=== PATIENT | male | born 1945 | race Caucasian/White ===

== ENCOUNTER → 2017-01-30 | Outpatient (CLI) | payer MEDICARE ==
[~2017-01-30] MED LIST: ACCUNEB 0.1.25 MG/1 NEB; ADVAIR 250/501 EA INH; ADVAIR 500/501 EA INH; ALBUTEROL1.25 MG/3 NEB; AMPICILLIN250 MG PO; AMPICILLIN500 MG PO; BIAXIN500 MG PO; CEFTIN250 MG PO; CEFUROXIME250 MG PO; CLARITIN10 MG PO; COMBIVENT1 ARO IH; CONGESTI PO; COREG12.5 M1 PO; COREG6.25 MG PO; COUMADIN2 M1 PO; COUMADIN2 MG PO; COUMADIN3 M1 PO; COUMADIN4 M1 PO; Carafate1 GM/10 ML PO; Coumadin2 MG PO; DALI500T PO; DARVOCET N 1001 TAB PO; DELTASONE10 MG PO; DELTASONE20 MG PO; DOXYCYCLINE100 M3 PO; DOXYCYCLINE100 MG PO; FLONASE0.05 MG/AC NS; FLUCONAZOLE100 MG PO; HYDROCHLOROTH12.5 MG PO; JANTOVEN1 MG PO; KEFLEX500 MG PO; LISINOPRIL10 M1 PO; LISINOPRIL10 MG; LISINOPRIL20 MG PO; LISINOPRIL5 MG PO; MAXIPIME1 GM IV; MEDROL DOSEPAK4 MG PO; METAMUCIL0.4 GM PO; METFORMIN500 MG PO; MUCINEX DM 30/61 TAB PO; Metformin Hydr500 MG PO; NASONEX0.05 MG/AC NAS; NEXIUM40 MG PO; OMNICEF300 MG PO; PREDNISONE10 MG PO; SIMVASTATIN20 MG PO; SINGULAIR10 MG PO; SMZ TMP DS PO; SPIRIVA -- 3018 MCG INH; THEOPHYLLINE300 M2 PO; TRAZADONE HYDR100 MG PO; TRAZODONE50 MG PO; TUSSI-ORGANID3840 ML PO; ULTRAM50 MG PO; VENTOLIN 02.5 MG/3 M INH; WARFARIN2 MG PO; WARFARIN4 MG; XARE20MG PO; ZITHROMAX250 MG PO; ZYVOX600 MG PO
== END | disposition home or self-care (01) ==
LOC: CT 09:42
DX: R91.1 Solitary pulmonary nodule (principal); R91.8 Other nonspecific abnormal finding of lung field; R05 Cough; R06.02 Shortness of breath; J43.9 Emphysema, unspecified; J44.9 Chronic obstructive pulmonary disease, unspecified; Z85.46 Personal history of malignant neoplasm of prostate; Z85.51 Personal history of malignant neoplasm of bladder

== ENCOUNTER 2017-09-22 14:44 | Inpatient (IN) | payer MEDICARE ==
[~2017-09-22] VITALS: Ht 170.1 cm; Wt 76.3 kg
--- NOTE | ~2017-09-22 | CON ---
[place], [place] REPORT OF CONSULTATION NAME: JUNIOR Chanel [id number] UN[facility] #: [id number] ROOM: 526 DOCTOR: CARLOS PRO MD BIRTHDATE: [birth year] DOS: 09/24/2017 CONSULTATION REQUESTED BY: Hospitalist service. REASON FOR CONSULTATION: Assessment of the ongoing respiratory symptoms, possibility of Mycobacterium avium complex infection. HISTORY OF PRESENT ILLNESS: This is a 72-year-old white male patient who has been known to me from the past. The patient has been hospitalized in December 2016 and treated for acute exacerbation of chronic obstructive pulmonary disease and acute bronchitis. The patient underwent bronchoscopy at that time, which was therapeutic bronchoscopy, negative cultures for the Mycobacterium organism. The patient presented to the hospital and currently admitted to the hospital as the patient has been noted with symptoms of having increased coughing with sputum expectoration at times. The shortness of breath of the patient has been noted worsening with increased coughing, which was noted with some sputum expectoration at times, yellowish in color. There were no symptoms of hemoptysis reported. The patient denies symptoms of chest pain. He denies any symptoms of abnormal weight loss. REVIEW OF SYSTEMS: CONSTITUTIONAL SYMPTOMS: He does complain of fatigue. Denies any symptoms of abnormal weight loss. Denies any changes in appetite. EYES: Denies any burning, redness, or tenderness. EARS, NOSE, AND THROAT: Denies sore throat, hoarseness, otalgia, postnasal drainage, or epistaxis. CARDIOVASCULAR: Denies anginal pain, edema or pain of the lower extremity. GASTROINTESTINAL: No dysphagia, nausea, vomiting, diarrhea, abdominal pain, hematemesis, melena, or hematochezia. SKIN: Denies any abnormal lesions or rashes. CENTRAL NERVOUS SYSTEM: Denies dizziness, headache, diplopia, or syncopal episodes. GENITOURINARY: The patient does have diversion ileostomy. There was no flank pain or hematuria reported. Remaining systems were reviewed with the patient, they were noted all negative. PAST MEDICAL HISTORY: 1. Uncomplicated severe persistent bronchial asthma. 2. Centrilobular emphysema. 3. Gastroesophageal reflux. 4. Bladder cancer. The patient had cystectomy and diversion ileostomy. 5. Prostate cancer managed surgically as well. 6. Mild obesity. 7. 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 8. Pulmonary embolus in 2008. 9. Chronic pleural thickening on the right side with some area of pulmonary fibrosis. 10. History of Pseudomonas aeruginosa pneumonia and bronchitis in the past. [place], [place] REPORT OF CONSULTATION NAME: JUNIOR Chanel LEMUS UNIT #: [id number] ROOM: 526 DOCTOR: YUNIER PAYTON MD,CARLOS BIRTHDATE: [birth year] PAST SURGICAL HISTORY: 1. Cystoscopy with cystectomy and diversion ileostomy. 2. Bladder cancer surgery with prostatectomy. 3. Amputation of little finger. 4. Past therapeutic bronchoscopy, 3 of them done in the past, last was done in December of 2016. SOCIAL HISTORY: The patient is and lives at home. He has been noted with history of tobacco use from age of [age] years old, a pack of cigarettes per day until year 1999. There was no history of alcohol use or illicit drug use or occupation related pulmonary exposure. FAMILY HISTORY: Father at age of 89 years of unknown cancer. Mother at age of 80 years with no medical illnesses. MEDICATIONS: Current administered medication in this patient, which were noted as use of Daliresp, Protonix, Coreg, Mucinex, trazodone, DuoNeb, azithromycin, Rocephin, temazepam, and other p.r.n. medications. ALLERGIES: NOTED ALLERGY TO FLUOROQUINOLONE. PHYSICAL EXAMINATION: GENERAL: A 72-year-old male who has been currently noted awake and alert, without any distress. Height of 5 feet 7 inches, weight 168 pounds, BMI 26.2. VITAL SIGNS: Temperature 99.2 degree Fahrenheit, normal temperature recorded since admission, respiratory rate ranged between 39 and 20 this morning. Heart rate ranges between 100 and 58. Blood pressure 147/580-129/66. Pulse oxygen saturation of the patient noted on 3 liters nasal cannula 98% saturation of oxygen. HEENT: Mild senile hearing loss. Head was atraumatic. NECK: Supple. CARDIOVASCULAR SYSTEM: S1, S2 audible. LUNGS: The patient was noted without any wheeze or crackles at the present time. Breaths are noted mild to moderately decreased bilaterally. ABDOMEN: Soft, nontender. EXTREMITIES: Without any edema, clubbing, or cyanosis. CENTRAL NERVOUS SYSTEM: Without any gross focal deficit. SKIN: No visible lesions or rashes. MUSCULOSKELETAL: Without any acute deformities. LABORATORY DATA: The patient's CBC on 09/22/2017 for this patient on admission, WBC count 20.2, hemoglobin 13.7, hematocrit 43.2, and platelet count was normal. The differential for the patient was noted as 88% segmented neutrophils with ____ differential. Lactic acid 3.1, subsequent 2.0 on 09/22/2017 on admission. BMP, BUN 25, creatinine 2.10, glucose 128, and sodium 135. The troponin for the patient, which were done on 09/22/2017, 3 sets were all noted normal. CMP on 09/24/2017, BUN 42, creatinine 1.61, glucose 128. The culture of the sputum, preliminary showing normal yfn from 09/23/2017. Gram stain of 09/23/2017, [place], [place] REPORT OF CONSULTATION NAME: JUNIOR Chanel LEMUS UNIT #: [id number] ROOM: 526 [facility] [birth year] many white blood cells, rare epithelial cells, moderate gram-positive cocci in pairs. Blood cultures from 09/22/2017 showed no bacterial growth. Chest x-ray one-view of the patient that was done for this patient on admission was noted with changes of COPD with scattered interstitial infiltration for this patient, which appeared to be increased. CT scans of the chest on the patient were reviewed. The first CT scan of the chest was reviewed from 2010 shows chronic fibrotic changes noted scattered in the lung with pleural thickening. CT scan of the chest on the patient that was done on 01/30/2017, was reviewed, shows area of chronic fibrotic changes noted predominantly in the right lower lobe with a chronic pleural thickening. Scattered tree-in-bud appearance was noted. The CT scan of the chest on this patient was completed that was ordered by the primary care attending on 09/22/2017 was also personally reviewed. Patchy area of infiltration was noted that appeared to be more pronounced as compared with the previous CT scan of the chest. Evidence of centrilobular emphysema changes noted in the lungs bilaterally remains unchanged. Chronic pleural thickening in the right side was especially noted, which has been known for past many years without any changes. IMPRESSION: 1. The patient has been currently admitted to the hospital with increased respiratory symptoms noted with acute exacerbation of chronic obstructive pulmonary disease and bronchial asthma superimposed on current acute bronchitis versus chronic infection to be considered as well. In the past, three bronchoscopies done on several occasions on this patient including the one done this year, does not show any isolation of Mycobacterium avium complex or other mycobacterial infection in this patient suggestive of acute infection at that time. Possibility of a new infection superimposed cannot be completely excluded as well. 2. History of past tobacco use in this patient. 3. Chronic pleural thickening, remains unchanged, nonmalignant. 4. Past history of cancer of the urinary bladder as well as the prostate in the patient, which has been treated adequately without any known recurrence. 5. Past history of pulmonary embolism, treated with anticoagulation. PLAN OF MANAGEMENT: The patient was planned for another bronchoscopy that will be done tomorrow morning for more accurate culture assessment to rule out Mycobacterium avium complex infection. In the meantime, usual antibiotic as previously. Continuation of the Solu-Medrol treatment as well. All other supportive therapy, plan of management and care as ongoing. The consent for the procedure has been obtained from the patient. Planned to be done in the morning. N.p.o. past midnight status will be achieved. The patient has not been noted on any anticoagulation at this time since it had been discontinued after several years of use by the primary care physician. [place], [place] REPORT OF CONSULTATION NAME: JUNIOR Chanel LEMUS UNIT #: [id number] ROOM: 526 DOCTOR: CARLOS PRO MD BIRTHDATE: [birth year] CARLOS FAYE MD CM:CONSTR:REPORT OF CONSULTATION 1251 09/25/17 0256 interface
--- NOTE | ~2017-09-22 | EKG ---
[place], [place] ELECTROCARDIOGRAM REPORT NAME: JUNIOR Chanel LEMUS UNIT #: [id number] ROOM: 526 DOCTOR: YUNIER PAYTON MD,CARLOS BIRTHDATE: [birth year] DOS: 09/24/2017 The electrocardiogram was done on 09/24/2017 at 10:12 a.m. The patient noted with normal sinus rhythm with heart rate of 67 beats per minute. CARLOS FAYE MD CM:EKGRPT:ELECTROCARDIOGRAM REPORT [id number] CARLOS PAYTON MD
--- NOTE | ~2017-09-22 | PR ---
[place], [place] PROGRESS NOTE NAME: JUNIOR Chanel LEMUS UNIT #: [id number] ROOM: 526 DOCTOR: YUNIER PAYTON MD,CARLOS BIRTHDATE: [birth year] DOS: 09/26/2017 SUBJECTIVE: He has been noted comfortable. Bronchoscopy done yesterday. Reduction in symptoms of cough was noted. Shortness breath and wheezing was also noted decreased. OBJECTIVE: VITAL SIGNS: Recorded and showed normal temperature, respiratory rate 20, heart rate 67, and blood pressure 115/56. Pulse oxygen saturation on 3 liters 96% saturation recorded. HEENT: No acute change. NECK: Supple. CARDIOVASCULAR: S1, S2 audible. LUNGS: Without any crackles. Mild scattered expiratory wheezing. ABDOMEN: Soft and nontender. LABORATORY DATA: BUN 42 today. Creatinine 1.56. CBC: WBC count 12,000, mild anemia with normal platelet count. IMPRESSION: 1. The patient with acute tracheobronchitis, bilateral patchy infiltration, chronic versus acute infection or inflammatory fibrosis remains in consideration. 2. Resolving acute exacerbation of obstructive lung disease. The preliminary culture of the bronchial washing was noted normal yfn, final culture results were pending. PLAN OF TREATMENT: No changes in the plan of therapy at the present time. The patient could be considered for discharge to home with further followup as an outpatient. Other supportive plan of management and care. CARLOS FAYE MD CM:PNTRANS 0813 [id number] CARLOS PAYTON MD 09/26/17 1248 interface
--- NOTE | ~2017-09-22 | PROC NOTE ---
[place], [place] PROCEDURE NOTE NAME: JUNIOR Chanel LEMUS UNIT #: [id number] ROOM: 526 DOCTOR: YUNIER PAYTON MD,CARLOS BIRTHDATE: [birth year] DOS: 09/25/2017 PROCEDURE: Bronchoscopy. PREOPERATIVE DIAGNOSIS: The patient with bilateral tree-in-bud opacities in the lungs with ongoing coughing. POSTOPERATIVE DIAGNOSES: The patient with bilateral tree-in-bud opacities in the lungs with ongoing coughing. PROCEDURE DESCRIPTION: Informed consent obtained for the patient. The patient was brought to the OR and placed in supine position. Conscious sedation administered by the Anesthesia Department. After achieving proper sedation, airway introduced into the mouth. Bronchoscope advanced to the airway into laryngeal area. Epiglottis and vocal cords were seen. Vocal cords were noted with yellowish in color moving symmetrically with movements. Bronchoscope advanced to the vocal cords into the trachea. The trachea was noted with moderate amount of thick mucus secretion with some purulent secretion, which was suctioned out with the help of normal saline wash, sent for culture. A moderate amount of impaction of the mucus plugs noted endobronchial tree bilaterally, which was suctioned out with the help of normal saline wash without any difficulty. Postoperative findings were discussed with the patient's spouse in detail. Based on the current assessment, the dose of the corticosteroids will be decreased to 40 mg Solu-Medrol b.i.d. from 60 mg b.i.d. CARLOS FAYE MD CM:PROCNOTE:PROCEDURE NOTE 0950 1204 CARLOS PAYTON MD
--- NOTE | ~2017-09-22 | PROC NOTE ---
[place], [place] PROCEDURE NOTE NAME: JUNIOR Chanel LEMUS UNIT #: [id number] ROOM: 526 DOCTOR: MANJU BRADEN BIRTHDATE: [birth year] DOS: 09/24/2017 MODIFIED BARIUM SWALLOW LOCATION: [facility], room 526, bed 1.. ORDERING PHYSICIAN: Dr. Nunez. RADIOLOGIST: Dr. Martinez. BACKGROUND INFORMATION: The patient is a 72-year-old male who was seen for modified barium swallow. This test was ordered to rule out aspiration. Medical history is significant for pneumonia, severe sepsis, ARS, HTN, urostomy, bladder cancer, COPD, DM and prostate cancer. The patient currently receives a regular diet and thin liquids. For today's assessment, he was alert and able to follow commands. The patient was receiving oxygen via nasal cannula. Congested respirations were noted. The patient was also noted to cough frequently prior to feeding. Oral peripheral examination revealed edentulous status. Lingual, labial and buccal skills were within normal limits in terms of strength, range of motion and coordination. The patient was able to volitionally cough and swallow. METHODS AND MATERIALS USED FOR THE EXAM: The patient was positioned in the lateral plane and examination was viewed under fluoroscopy. The patient was challenged with a variety of consistencies to assess swallowing skills including applesauce mixed with barium presented in half teaspoon amounts, barium coated cookie and sandwich given in bite size pieces and thin liquid barium taken by cup and straw. The patient was given the cup and instructed to swallow independently. He was noted to consume and swallow the liquids quickly. ORAL PHASE: Unremarkable. PHARYNGEAL PHASE: The pharyngeal swallow occurred within a timely manner. Transient penetration occurred during the swallow with thin liquids when taken by cup and straw. This is suspected to be due to his rapid swallowing and rapid consumption time. No aspiration occurred with any consistency. There was no residue in the pharyngeal recesses. ESOPHAGEAL PHASE: This phase of the swallow was not formally assessed during this examination. IMPRESSIONS AND RECOMMENDATIONS: Based upon assessment results, this 72-year-old patient presents with swallowing skills that are grossly within functional limits. Transient penetration occurred without aspiration with thin liquids. Recommend the patient receive a regular diet and thin liquids. Recommend small slow sips of thin liquid by cup. Short term followup is recommended focusing on education and adherence to safe swallow precautions. Results and recommendations were shared with the patient and his nurse and they verbalized understanding. [place], [place] PROCEDURE NOTE NAME: JUNIOR Chanel LEMUS UNIT #: [id number] ROOM: 526 DOCTOR: MANJU BRADEN BIRTHDATE: [birth year] Thank you very much for this referral. Should you have any questions regarding this patient, please contact the speech pathologist at [phone]. MANJU BRADEN CM:PROCNOTE:PROCEDURE NOTE 1500 [id number] MANJU BRADEN
--- NOTE | ~2017-09-22 | PR ---
[place], [place] PROGRESS NOTE NAME: JUNIOR Chanel LEMUS UNIT #: [id number] ROOM: 526 DOCTOR: CARLOS PRO MD BIRTHDATE: [birth year] DOS: 09/25/2017 SUBJECTIVE: He has been noticed still significant cough. The patient with some sputum expectoration at time. He is n.p.o. past midnight for bronchoscopy today. The patient has been noted symptoms shortness, wheezing intermittently as well. Continue corticosteroids and other medical management was continued as previously ordered. OBJECTIVE: VITAL SIGNS: Normal temperature, respiratory rate 20, heart rate 63, blood pressure 150/59. Pulse oxygen saturation 96% saturation. HEENT: Examination shows no acute change. NECK: Supple. CARDIOVASCULAR: S1, S2 audible. LUNGS: The patient was noted without any crackles. Expiratory wheezing was present bilaterally. ABDOMEN: Soft, nontender. EXTREMITIES: Without any acute edema. LABORATORY DATA: WBC count 15,000, hemoglobin 11, hematocrit 35.0, platelet count of 219,000. The BMP this morning, BUN 46, creatinine 1.63, glucose 119, chloride of 109. Culture of the sputum, normal yfn. IMPRESSION: 1. The patient who has been currently noted with ongoing acute exacerbation of chronic obstructive pulmonary disease and bronchial asthma, acute tracheobronchitis. 2. The patient with a history of cancer of the bladder and the prostate with diversion ileostomy. 3. Rule out mycobacterium avium complex infection as well. 4. Leukocytosis secondary to corticosteroids and underlying infection. Modified barium swallow that was done yesterday was noted essentially without any acute abnormalities. PLAN OF TREATMENT: Proceed with bronchoscopy as planned for today. Any addition or modification treatment changes if necessary will be done after bronchoscopy. Otherwise, continue the patient corticosteroids, bronchodilators, antibiotics and other therapies. Usual care. [place], [place] PROGRESS NOTE NAME: JUNIOR Chanel LEMUS UNIT #: [id number] ROOM: 526 DOCTOR: CARLOS PRO MD BIRTHDATE: [birth year] CARLOS FAYE MD CM:PNTRANS 0949 1205 CARLOS PAYTON MD 09/25/17 1206 interface
[2017-09-22 14:55] VITALS: BP 153/79
[2017-09-22 15:39] LABS: BASO % 0.2 % (0.0-1.0); HEMATOCRIT 43.3 % (42.0-52.0); HEMOGLOBIN 13.7 g/dl (14.0-18.0); LYMPH # 1.2 10*3/uL (1.3-4.4); LYMPH % 5.9 % (27.0-41.0); MEAN CELL VOLUME 88.2 fl (80.0-94.0); MEAN CORPUSCULAR HGB 27.9 pg (27.0-31.0); MEAN CORPUSCULAR HGB CONC 31.6 g/dl (33.0-37.0); MEAN PLATELET VOLUME 9.3 fl (9.6-12.3); MONO # 1.1 10*3/uL (0.1-1.0); MONO % 5.3 % (3.0-9.0); NEUT # 17.8 10*3/uL (2.3-7.9); NEUT % 88.1 % (47.0-73.0); PLATELET COUNT AUTOMATED 280 10*3/uL (130-400); RED BLOOD COUNT 4.91 10*6/uL (4.50-5.90); RED CELL DISTRI WIDTH 13.1 % (0-14.5); WHITE BLOOD COUNT 20.2 10*3/uL (4.8-10.8)
[2017-09-22 15:56] LABS: ACT PARTIAL THROMBO TIME 31.5 SECONDS (20.8-31.5); INTERNATIONAL NORM RATIO 1.1 (2.0-3.5)
[2017-09-22 16:00] LABS: ALBUMIN 3.3 gm/dl (3.1-4.5); ALKALINE PHOSPHATASE 115 U/L (45-117); BUN 25 mg/dl (7-24); CHLORIDE 99 mmol/L (98-107); LIPASE 69 U/L (73-393); POTASSIUM 4.6 mmol/L (3.5-5.1); SGOT/AST 12 IU/L (3-35); SGPT/ALT 12 U/L (12-78); SODIUM 135 mmol/L (136-145); TOTAL PROTEIN 8.6 gm/dL (6.4-8.2)
[2017-09-22 16:17] LABS: TROPONIN I < 0.015 ng/ml (<0.045)
[2017-09-22 16:20] VITALS: BP 117/73
[2017-09-22 17:04] VITALS: BP 139/67
--- NOTE | 2017-09-22 17:09 | NUR ---
REPORT GIVEN TO OTILIA GERARDO AT THIS TIME.
[2017-09-22 17:40] VITALS: BP 115/67
--- NOTE | 2017-09-22 17:40 | NUR ---
A 72, admitted to , under the services of MATTEO Malone DO with a diagnosis of PNEUMONIA, ARF, AND SEVERE SEPSIS. Chief complaint is SHORTNESS OF BREATH. Patient arrived via ambulatory from ER. Monitor applied. Initial assessment completed. Vital signs taken and recorded. MATTEO MALONE DO notified of admission to the unit. Orders received. See assessment for past medical history, medications and allergies. Patient and/or family oriented to unit. [facility] visitation policy reviewed. Clothing/patient valuable form completed. OTILIA FIORE
[2017-09-22 17:43] VITALS: BP 115/67
--- NOTE | 2017-09-22 17:56 | NUR ---
MEDS VERIFIED WITH [facility]. PATIENT'S STATES THAT DR FAYE IS GIVING THEM SAMPLES OF THE ADVAIR AND THE PATIENT WAS GETTING SAMPLES OF COREG FROM PCP BUT IS CURRENTLY OUT.
--- NOTE | 2017-09-22 19:49 | NUR ---
IN TO SEE PT, PT ALERT ORIENTED AND PLEASANT. SUPPLEMENTAL OXYGEN IN PLACE. RESPIRATIONS EASY. OFF THE FLOOR TO CAT SCAN AT THIS TIME.
[2017-09-22 21:08] VITALS: BP 121/56
[2017-09-23] VITALS: BP 104/41
[2017-09-23 06:17] LABS: MEAN CELL VOLUME 88.2 fl (80.0-94.0); MEAN CORPUSCULAR HGB 28.1 pg (27.0-31.0); MEAN CORPUSCULAR HGB CONC 31.9 g/dl (33.0-37.0); MEAN PLATELET VOLUME 9.7 fl (9.6-12.3); PLATELET COUNT AUTOMATED 234 10*3/uL (130-400); RED BLOOD COUNT 3.91 10*6/uL (4.50-5.90); WHITE BLOOD COUNT 12.8 10*3/uL (4.8-10.8)
[2017-09-23 06:21] LABS: HEMATOCRIT 34.5 % (42.0-52.0)
[2017-09-23 06:42] LABS: ALBUMIN 2.5 gm/dl (3.1-4.5); CREATININE 1.66 mg/dL (0.70-1.30); PHOSPHOROUS 2.3 mg/dL (2.5-4.9); POTASSIUM 4.6 mmol/L (3.5-5.1); TOTAL PROTEIN 6.7 gm/dL (6.4-8.2)
[2017-09-23 06:49] LABS: FREE T4 1.19 ng/dl (0.76-1.46); THYROID STIM HORMONE (HS) 0.248 uIU/ml (0.358-4.75)
[2017-09-23 07:06] LABS: PLATELET SUFFICIENCY NORMAL (NORMAL); TOTAL CELLS COUNTED 100 #CELLS; TOXIC GRANULATION SLIGHT
[2017-09-23 07:21] LABS: VITAMIN D, 25-HYDROXY 19.2 ng/mL (30-100)
--- NOTE | 2017-09-23 07:51 | NUR ---
Shift chart check completed.
[2017-09-23 08:00] VITALS: BP 124/68
--- NOTE | 2017-09-23 11:39 | NUR ---
NOTIFIED DR FAYE OF CONSULT
[2017-09-23 12:00] VITALS: BP 129/66
[2017-09-23 20:00] VITALS: BP 134/64
[2017-09-24] VITALS: BP 141/58
--- NOTE | 2017-09-24 01:28 | NUR ---
PT RESTING IN BED NO ACUTE DISTRESS NOTED AT THIS TIME. CALL LIGHT IN REACH.
--- NOTE | 2017-09-24 05:00 | NUR ---
PT RESTING IN BED WITH EYES CLOSED. NO S AND S OF ACUTE DISTRESS NOTED AT THIS TIME. RESPS EASY AND REGULAR. CALL LIGHT IN REACH.
[2017-09-24 06:48] LABS: HEMATOCRIT 33.8 % (42.0-52.0); HEMOGLOBIN 10.8 g/dl (14.0-18.0); MEAN CELL VOLUME 87.6 fl (80.0-94.0); MEAN PLATELET VOLUME 9.6 fl (9.6-12.3); PLATELET COUNT AUTOMATED 273 10*3/uL (130-400); RED BLOOD COUNT 3.86 10*6/uL (4.50-5.90); WHITE BLOOD COUNT 17.7 10*3/uL (4.8-10.8)
[2017-09-24 07:02] LABS: ALBUMIN 2.6 gm/dl (3.1-4.5); CREATININE 1.61 mg/dL (0.70-1.30); POTASSIUM 4.5 mmol/L (3.5-5.1); TOTAL PROTEIN 6.7 gm/dL (6.4-8.2)
[2017-09-24 07:24] LABS: BURR CELLS MODERATE; PLATELET SUFFICIENCY NORMAL (NORMAL); TOTAL CELLS COUNTED 100 #CELLS
--- NOTE | 2017-09-24 07:30 | NUR ---
ASSUMED CARE OF PT AT THIS TIME RESPS EASY AND NONLABORED WITH NO S/S OF DISTRESS CALL LIGHT WITH IN REACH
[2017-09-24 08:00] VITALS: BP 100/58
--- NOTE | 2017-09-24 09:23 | NUR ---
Recycler in to talk to patient. Patient states lives at home with . There are few steps in the home. Physician: ana maría Pharmacy: [facility] [place] [facility] services: none Patient's level of ADLs: INDEPENDENT Patient has working utilities: all working DME: nebulizer, home oxygen, portable tanks from [employer] Follow-up physician's appointment after d/c: will be made by hospitalist nurse director upon discharge Does patient want to access PORTAL?: no Discharge plan discussed with patient, patient lives at home alone, is independent in adls and ambulation, patient states he will be going back home when able, discussed with him VNA and he refused any services at this time. ANTHONY OWENS
[2017-09-24 12:00] VITALS: BP 147/58
--- NOTE | 2017-09-24 14:30 | NUR ---
SPEECH PATHOLOGY MBS completed as per orders. Patient was challenged with puree, soft solids and thin liquids taken by cup and straw. Oral skills were WNL with all consistencies given. Transient penetration occurred with thin liquid by cup and by straw. No aspiration occurred with any consistency. He was noted to drink rapidly. Recommend patient remain on regular diet and thin liquids. Recommend patient consume liquids in small amounts and drinking slowly to improve safety. Short term follow up is recommended focusing on education to ensure implementation of safe swallow strategies. Results and tex. were shared with patient and his nurse and they verbalized understanding. Dictated report to follow. Thank you for this referral. MANJU BRADEN MSCCC-DIRECTOR OF LABOR AND DELIVERY
[2017-09-24 16:00] VITALS: BP 135/60
[2017-09-24 20:00] VITALS: BP 132/62
[2017-09-25] VITALS (7 sets, daily range): BP systolic 115–153; BP diastolic 56–78
--- NOTE | 2017-09-25 03:05 | NUR ---
24 HR chart check completed.
[2017-09-25 06:37] LABS: MEAN CELL VOLUME 88.2 fl (80.0-94.0); MEAN CORPUSCULAR HGB 27.7 pg (27.0-31.0); MEAN CORPUSCULAR HGB CONC 31.4 g/dl (33.0-37.0); MEAN PLATELET VOLUME 9.9 fl (9.6-12.3); PLATELET COUNT AUTOMATED 293 10*3/uL (130-400); RED BLOOD COUNT 3.97 10*6/uL (4.50-5.90); RED CELL DISTRI WIDTH 13.1 % (0-14.5)
[2017-09-25 07:10] LABS: CREATININE 1.63 mg/dL (0.70-1.30)
--- NOTE | 2017-09-25 07:18 | NUR ---
PT OFF FLOOR FOR BRONCHOSCOPY
[2017-09-25 07:57] LABS: BURR CELLS FEW; OVALOCYTES FEW; PLATELET SUFFICIENCY NORMAL (NORMAL); TOTAL CELLS COUNTED 200 #CELLS
--- NOTE | 2017-09-25 09:00 | NUR ---
case management attempted to visit with patient, patient out of room for procedure
--- NOTE | 2017-09-25 12:12 | NUR ---
SPEECH PATHOLOGY Patient was seen for f/u session this pm. Patient was visiting with spouse and was cooperative for tasks. He was able to recall recommendations provided after yesterday's MBS regarding slow intake with liquids and small sips. Patient's spouse was educated on results and tex. from the instrumental study and verbalized understanding. He had recently returned from a bronchoscopy and had a liquid tray present, which he had consumed all of. He reported that he adhered to the recommendations and had no coughing or choking episodes. Spouse confirmed the information he provided. As patient is implementing safe swallow strategies and tolerating liquids, recommend discharge from speech pathology services at this time. Thank you for this referral. MANJU BRADEN MSCCC-CUSHION BUILDER
--- NOTE | 2017-09-25 16:06 | NUR ---
PT REQUESTED AND ADMINISTERED MOM PRN, WILL MONITOR EFFECTS, CALL LIGHT WITH IN REACH
[2017-09-25 17:10] LABS: ACID FAST SMEAR Negative (.); ACID FAST SPEC PROCESSING Concentration (.)
[2017-09-26] VITALS: BP 115/56
--- NOTE | 2017-09-26 04:44 | NUR ---
24 HR chart check completed.
--- NOTE | 2017-09-26 05:25 | NUR ---
PT VOICES NO C/O AT THIS TIME.
[2017-09-26 06:47] LABS: BASO % 0.1 % (0.0-1.0); HEMATOCRIT 36.1 % (42.0-52.0); HEMOGLOBIN 11.3 g/dl (14.0-18.0); LYMPH # 1.6 10*3/uL (1.3-4.4); LYMPH % 13.3 % (27.0-41.0); MEAN CELL VOLUME 90.9 fl (80.0-94.0); MEAN CORPUSCULAR HGB 28.5 pg (27.0-31.0); MEAN CORPUSCULAR HGB CONC 31.3 g/dl (33.0-37.0); MEAN PLATELET VOLUME 9.5 fl (9.6-12.3); MONO # 0.7 10*3/uL (0.1-1.0); MONO % 5.8 % (3.0-9.0); NEUT # 9.6 10*3/uL (2.3-7.9); PLATELET COUNT AUTOMATED 272 10*3/uL (130-400); RED BLOOD COUNT 3.97 10*6/uL (4.50-5.90); RED CELL DISTRI WIDTH 13.1 % (0-14.5)
[2017-09-26 07:32] LABS: POTASSIUM 4.6 mmol/L (3.5-5.1)
[2017-09-26 07:39] LABS: CREATININE 1.56 mg/dL (0.70-1.30)
[2017-09-26 08:00] VITALS: BP 154/61
--- NOTE | 2017-09-26 09:30 | NUR ---
case management visits with patient, discussed with him VNA. patient refused any services at this time
[2017-09-26] MEDS ORDERED: SUPRAX400 M2 PO (12:28)
[2017-09-26] MEDS ORDERED: AVPAK AZITHROM250 MG PO (12:28)
[2017-09-26] MEDS ORDERED: PREDNISONE50 MG PO (12:28)
--- NOTE | 2017-09-26 14:54 | NUR ---
Discharge instructions reviewed with patient/family. Patient receptive and verbalizes understanding. Follow-up care arranged. Written instructions given to patient/family. YEN SALAS
[2017-09-26 16:13] LABS: ACID FAST SMEAR Negative (.); ACID FAST SPEC PROCESSING Concentration (.)
== END 2017-09-26 14:51 | disposition home or self-care (01) | DRG 871 ==
LOC: ED 14:44 → 5E 16:50 → EDHOLD 16:50 → 5E 16:57
PROVIDERS: Emergency Medicine; Family Medicine; Internal Medicine; Student in an Organized Health Care Education/Training Program; ADMIT Internal Medicine
PROC: BD11YZZ Fluoroscopy of Esophagus using Other Contrast (ICD-10-PCS; principal; 2017-09-24)
PROC: 0BC28ZZ Extirpation of Matter from Carina, Via Natural or Artificial Opening Endoscopic (ICD-10-PCS; 2017-09-25)
PROC: 0BC48ZZ Extirpation of Matter from Right Upper Lobe Bronchus, Via Natural or Artificial Opening Endoscopic (ICD-10-PCS; 2017-09-25)
PROC: 0BC88ZZ Extirpation of Matter from Left Upper Lobe Bronchus, Via Natural or Artificial Opening Endoscopic (ICD-10-PCS; 2017-09-25)
PROC: 0BC18ZZ Extirpation of Matter from Trachea, Via Natural or Artificial Opening Endoscopic (ICD-10-PCS; 2017-09-25)
PROC: 0BC58ZZ Extirpation of Matter from Right Middle Lobe Bronchus, Via Natural or Artificial Opening Endoscopic (ICD-10-PCS; 2017-09-25)
PROC: 0BC38ZZ Extirpation of Matter from Right Main Bronchus, Via Natural or Artificial Opening Endoscopic (ICD-10-PCS; 2017-09-25)
PROC: 0BC78ZZ Extirpation of Matter from Left Main Bronchus, Via Natural or Artificial Opening Endoscopic (ICD-10-PCS; 2017-09-25)
PROC: 0BC68ZZ Extirpation of Matter from Right Lower Lobe Bronchus, Via Natural or Artificial Opening Endoscopic (ICD-10-PCS; 2017-09-25)
PROC: 0BCB8ZZ Extirpation of Matter from Left Lower Lobe Bronchus, Via Natural or Artificial Opening Endoscopic (ICD-10-PCS; 2017-09-25)
PROC: 0BC98ZZ Extirpation of Matter from Lingula Bronchus, Via Natural or Artificial Opening Endoscopic (ICD-10-PCS; 2017-09-25)
DX: A41.9 Sepsis, unspecified organism (principal); J18.9 Pneumonia, unspecified organism; N17.0 Acute kidney failure with tubular necrosis; J96.20 Acute and chronic respiratory failure, unspecified whether with hypoxia or hypercapnia; I13.0 Hypertensive heart and chronic kidney disease with heart failure and stage 1 through stage 4 chronic kidney disease, or unspecified chronic kidney disease; E87.2 Acidosis; I50.32 Chronic diastolic (congestive) heart failure; J84.10 Pulmonary fibrosis, unspecified; J44.1 Chronic obstructive pulmonary disease with (acute) exacerbation; J44.0 Chronic obstructive pulmonary disease with (acute) lower respiratory infection; E87.1 Hypo-osmolality and hyponatremia; D63.1 Anemia in chronic kidney disease; N18.3 Chronic kidney disease, stage 3 (moderate); R65.20 Severe sepsis without septic shock; I25.10 Atherosclerotic heart disease of native coronary artery without angina pectoris; F32.9 Major depressive disorder, single episode, unspecified; K21.9 Gastro-esophageal reflux disease without esophagitis; E78.00 Pure hypercholesterolemia, unspecified; I25.5 Ischemic cardiomyopathy; X58.XXXA Exposure to other specified factors, initial encounter; R79.82 Elevated C-reactive protein (CRP); R79.89 Other specified abnormal findings of blood chemistry; J45.50 Severe persistent asthma, uncomplicated; J20.9 Acute bronchitis, unspecified; T38.0X5A Adverse effect of glucocorticoids and synthetic analogues, initial encounter; E55.9 Vitamin D deficiency, unspecified; E66.9 Obesity, unspecified; Z87.891 Personal history of nicotine dependence; Z79.01 Long term (current) use of anticoagulants; Z68.26 Body mass index [BMI] 26.0-26.9, adult; Z99.81 Dependence on supplemental oxygen; Z85.51 Personal history of malignant neoplasm of bladder; Z86.711 Personal history of pulmonary embolism; Z85.46 Personal history of malignant neoplasm of prostate; Z89.022 Acquired absence of left finger(s); Z93.2 Ileostomy status; Z90.6 Acquired absence of other parts of urinary tract; Z82.49 Family history of ischemic heart disease and other diseases of the circulatory system; Z80.9 Family history of malignant neoplasm, unspecified; Z88.1 Allergy status to other antibiotic agents; Z79.899 Other long term (current) drug therapy; Z88.8 Allergy status to other drugs, medicaments and biological substances

== ENCOUNTER 2017-10-16 13:46 | Inpatient (IN) | payer MEDICARE ==
[~2017-10-16] VITALS: Ht 170.1 cm; Wt 71.4 kg
--- NOTE | ~2017-10-16 | PR ---
[place], [place] PROGRESS NOTE NAME: JUNIOR Chanel LEMUS UNIT #: [id number] ROOM: 420 DOCTOR: YUNIER PAYTON MD,CARLOS BIRTHDATE: [birth year] DOS: 10/19/2017 SUBJECTIVE: He has been showing gradual reduction and improvement in respiratory symptom. The cough has been noted with a small amount of sputum expectoration. Wheezing has been decreasing, but not completely resolved. OBJECTIVE: VITAL SIGNS: This morning, normal temperature, respiratory rate 18, heart 79, and blood pressure 127/65. The pulse oxygen saturation on 2 liters nasal cannula 92% saturation recorded. HEENT: No acute change. NECK: Supple. CARDIOVASCULAR: S1, S2 audible. LUNGS: The patient was noted without any crackles. Expiratory wheezing. ABDOMEN: Soft and nontender. LABORATORY DATA: BMP: BUN 24, creatinine 1.48. CBC this morning showed hemoglobin 9.6, hematocrit 13.1, platelet count was normal. IMPRESSION: 1. The patient with resolving acute tracheobronchitis, progressive with acute recurrent exacerbation of chronic obstructive pulmonary disease and acute chronic hypoxic respiratory failure. 2. Mycobacterium avium, complex infection, which is resolving. 3. Acute kidney injury, resolving. 4. Chronic kidney disease. PLAN OF TREATMENT: No changes in the plan of therapy for the patient at this time. Continue the patient's current therapy, plan of care. Usual treatment, all other supportive plan of management and care. Additional treatment changes be made based on the progression of the illness. CARLOS FAYE MD CM:PNTRANS 1506 [id number] CARLOS PAYTON MD 10/20/17 0156 interface
--- NOTE | ~2017-10-16 | CON ---
[place], [place] REPORT OF CONSULTATION NAME: JUNIOR Chanel LEMUS UNIT #: [id number] ROOM: 420 DOCTOR: YUNIER PAYTON MDCARLOS BIRTHDATE: [birth year] DOS: 10/17/2017 CONSULTATION REQUESTED BY: Hospitalist services. REASON FOR CONSULTATION: Current acute exacerbation of chronic obstructive pulmonary disease. HISTORY OF PRESENT ILLNESS: This is a 72-year-old white male who has been known to me from the past. He has been seen in the office yesterday for followup visit after recent hospitalization. 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 The patient was recommended about placement in skilled nurse facility for further continued therapy, but he adamantly refused to do so. He has developed symptoms of progressive increased shortness of breath for the last several days, which has been noted more worsening over time. He has developed excessive severe cough, but there was a minimal sputum expectoration described as a purulent by the spouse. The patient has not been reported symptoms of hemoptysis. He does have symptoms of excessive wheezing which becomes audible at times as well. He has been seen in my office, was noted acutely ill with audible wheezing with significant shortness of breath. He has been using his oxygen supplementation at home. The patient was assessed and recommended about admission to the hospital. The bronchial washing culture of the patient were confirmed to be present with the presence of Mycobacterium avium intracellulare complex infection. REVIEW OF SYSTEMS: CONSTITUTIONAL: He does have symptoms of fatigue and tiredness. There were no symptoms of fever or chills reported. EYES: Denies any blurry vision or discharge, dryness of the eyes. EAR, NOSE, THROAT SYMPTOMS: Denies sore throat, hoarseness, otalgia, postnasal drainage or epistaxis. CARDIOVASCULAR SYSTEM: Denies anginal pain, edema, pain of the lower extremity. GASTROINTESTINAL: Dysphagia, nausea, vomiting, diarrhea, abdominal pain, hematemesis, melena, hematochezia. History of chronic diversion ileostomy. GENITOURINARY SYMPTOMS: History of prior cystectomy and diversion ileostomy as well. SKIN: Denies lesions or rashes. MUSCULOSKELETAL SYMPTOMS: No deformities. CENTRAL NERVOUS SYSTEM: Denies symptoms of headache, diplopia, uncomplicated severe persistent bronchial asthma. PAST MEDICAL HISTORY: 1. Pulmonary embolism in 2008, treated with anticoagulation in the past, currently not noted with any anticoagulation, which has been discontinued by the primary care physician previously. 2. History of cancer of the prostate and the urinary bladder with a cystectomy and diversion ileostomy. 3. Chronic hypoxic respiratory failure, use of oxygen supplementation 3 liters [place], [place] REPORT OF CONSULTATION NAME: JUNIOR Chanel LEMUS UNIT #: [id number] ROOM: [facility] DOCTOR: ATA PRO MDM BIRTHDATE: [birth year] nasal cannula. 4. Essential hypertension. 5. Gastroesophageal reflux. 6. Type 2 diabetes mellitus. 7. Mycobacterium avium complex infection diagnosis established bronchoscopy on 09/22/2017, bilateral pulmonary nodules. PAST SURGICAL HISTORY: 1. Cholecystectomy. 2. Electrical prostatectomy. 3. Diversion ileostomy. 4. 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 5. Past history of several bronchoscopies, last therapeutic bronchoscopy done in September 2017. SOCIAL HISTORY: The patient is and lives at home, has not been noted with any ____ occupation related pulmonary exposure. Tobacco use was noted from age of [age] years old, pack of cigarettes per day until 1999. FAMILY HISTORY: Father at 90 years old, complication of some cancer. Mother at age of 8080 years old related to the cancer as well. MEDICATIONS: Home medication patient which were listed were noted use of Daliresp, Glucophage, omeprazole, simvastatin, albuterol sulfate via nebulizer, Spiriva HandiHaler, ProAir HFA inhaler p.r.n. use, Advair 250/50 one puff b.i.d. and lisinopril. DRUG ALLERGIES: THE PATIENT WAS REPORTED ALLERGIES TO THE FLUOROQUINOLONES. PHYSICAL EXAMINATION: GENERAL: This is a 72-year-old male who has been currently noted awake and alert, noted somewhat better than yesterday with decreased respiratory distress, was not noted with audible wheezing at this time compared with my examination yesterday in the office. Height recorded on admission 5 feet 7 inches, weight of 157 pounds. VITAL SIGNS: For the patient which were recorded showed the temperature was normal since admission yesterday. Respiratory rate 28 on admission, noted as 18, heart rate 88-119, blood pressure 144/68-120/68. Intake 2400 mL and 450 mL. Pulse oxygen saturation with 4 liters nasal cannula to 3 liters is 97-98% saturation. HEENT: Age-related changes. Head, eyes, nonicterus. NECK: Supple. Oral mucosa is moist. CARDIOVASCULAR: S1, S2 audible. LUNGS: The patient has diffuse expiratory wheezing, partially decreased from previously. ABDOMEN: Soft, nontender. Bowel sounds present. EXTREMITIES: Noted without any edema, clubbing, cyanosis. SKIN: Visible skin. No lesions or rashes. MUSCULOSKELETAL SYMPTOMS: No deformities. CENTRAL NERVOUS SYSTEM: Cranial nerves 2-12 intact. No focal deficit. [place], [place] REPORT OF CONSULTATION NAME: JUNIOR Chanel LEMUS UNIT #: [id number] ROOM: [facility] DOCTOR[facility] [birth year] LABORATORY DATA: Lactic acid yesterday noted normal on admission. CBC on 10/16, WBC count normal ____ otherwise normal. CMP on 10/16, BUN 21, creatinine 1.67. Remaining CMP was normal. BMP this morning, BUN is 25, creatinine 1.75. CBC was done this morning shows WBC count normal, hemoglobin 10.4, hematocrit 33.4, platelet count was normal. The cultures of the bronchial washing for this patient on 09/25/2017 was noted with Mycobacterium avium intracellulare complex isolation. Chest x-ray 1 view, which was done shows partial reduction of previous noted pulmonary infiltration. IMPRESSION: 1. The patient who has been currently admitted to the hospital, noted with recurrence of acute exacerbation of chronic obstructive pulmonary disease and bronchial asthma combination with history of chronic hypoxic respiratory failure. 2. Mycobacterium avium intracellulare complex infection as well. Manifesting as bilateral pulmonary nodules. 3. Mild acute kidney most likely related to prerenal azotemia as well. 4. History of type 2 diabetes mellitus. PLAN OF MANAGEMENT: The patient has been started on 3 times a week dosing for this patient according to his body weight with Zithromax 500 mg daily. Ethambutol 1400 mg 3 times a week and rifampin 300 mg b.i.d. every Sunday, and Saturdays. History of past prostate cancer and the urinary bladder cancer. Continuation of current dose of Solu-Medrol for this patient. Continuation of the bronchodilators every 4 hours. The triple antibiotic regimen medical management of the Mycobacterium avium complex infection. Other supportive therapy, plan of management and care. Usual medical management, other therapies. Start the patient Dulera alternate formulation for the Dulera. Also, the patient will be started on Daliresp as well his long-term home medication as well. CARLOS FAYE MD CM:CONSTR:REPORT OF CONSULTATION 1218 10/17/173 interface
--- NOTE | ~2017-10-16 | PR ---
[place], [place] PROGRESS NOTE NAME: JUNIOR Chanel LEMUS UNIT #: [id number] ROOM: 420 DOCTOR: YUNIER PAYTON MD,CARLOS BIRTHDATE: [birth year] DOS: 10/20/2017 SUBJECTIVE: The patient continued to show reduction of the respiratory symptoms, coughing, wheezing, chest pain. OBJECTIVE: VITAL SIGNS: The patient showed normal temperature, respiratory rate 20, heart rate 86, blood 76/64. Pulse oxygen saturation 3 liters 96% saturation. HEENT: No acute change. NECK: Supple. CARDIOVASCULAR: S1, S2 audible. LUNGS: The patient was noted without any crackles. Occasional wheezing noted scattered in the lungs bilaterally. ABDOMEN: Soft, nontender. IMPRESSION: Progressive resolution of the acute exacerbation of chronic obstructive pulmonary disease and bronchial asthma with pulmonary nodule. The patient with Mycobacterium avium complex infection on triple antibiotic therapy, tolerated very well starting this hospitalization without any major side effects. PLAN OF TREATMENT: The patient could be discharged on tapering dose of prednisone. Continue the therapy for the MAC with the triple antibiotics. Outpatient followup 2 weeks post-discharge. The discharge planning was discussed with primary care attending, Dr. Robby Flynn. CARLOS FAYE MD CM:PNTRANS [id number] CARLOS PAYTON MD 10/21/17 0017 interface
--- NOTE | ~2017-10-16 | PR ---
[place], [place] PROGRESS NOTE [id number] UNIT #: [id number] ROOM: 420 DOCTOR: CARLOS PRO MD BIRTHDATE: [birth year] DOS: 10/18/2017 SUBJECTIVE: The patient has been rather noted gradual reduction of the respiratory symptom. The wheezing of the patient has been improving. There were no symptoms of chest pain or any abdominal pain. Wheezing for the patient has been still noted not completely resolved. OBJECTIVE: VITAL SIGNS: The patient has normal temperature, respiratory rate 20, heart rate 97, blood pressure ____. The pulse oxygen saturation for the patient recorded on 3 liters 96% saturation. HEENT: No acute change. NECK: Supple. CARDIOVASCULAR: S1, S2 audible. LUNGS: The patient was noted with expiratory wheezing, but still present in the lung, partially decreased as compared with yesterday examination. There were no crackles. ABDOMEN: Soft, nontender. EXTREMITIES: The patient was noted without any acute edema. CENTRAL NERVOUS SYSTEM: Cranial nerves are intact. MUSCULOSKELETAL: No deformities. SKIN: Shows scattered area of bruising of the skin for this patient as well. GENITOURINARY: No focal deficit. LABORATORY DATA: CBC of this morning: WBC count of 9.6, hemoglobin 13.5, platelet count of 259,000. The BMP for this patient, BUN 35, creatinine 1.55, chloride of 109. Modified barium swallow; the patient was completed yesterday as ordered for this patient, was noted as a normal study. IMPRESSION: 1. The patient with acute exacerbation of chronic obstructive pulmonary disease. The patient acute tracheobronchitis and acute radicular nodular opacity in the lungs related to the pulmonary involvement with Mycobacterium avium intracellulare complex infection. 2. Anemia of chronic disease. 3. Past history of cancer of the urinary bladder and the prostate. 4. Mild anemia of chronic disease as well. 5. Chronic hypoxic respiratory failure. 6. Acute exacerbation of chronic obstructive pulmonary disease and bronchial asthma, still noted actively. The patient's condition was noted only partially improved in the last 24 hours. PLAN OF MANAGEMENT: Continue current antibiotics. Taper regimen for LUIS infection. Continue bronchodilator with oxygen supplementation as well. Corticosteroid dose. The patient will remain the same in the next 24 hours. The reduction could be started from tomorrow depending further improvement in the symptoms and wheezing. Other supportive plan of management, care plan. Usual treatment, other therapies as well. [place], [place] PROGRESS NOTE NAME: JUNIOR Chanel LEMUS UNIT #: [id number] ROOM: [facility] DOCTOR: CARLOS PRO MD BIRTHDATE: [birth year] CARLOS FAYE MD CM:PNTRANS [phone] CARLOS PAYTON MD 10/18/17 1650 interface
--- NOTE | ~2017-10-16 | PROC NOTE ---
[place], [place] PROCEDURE NOTE NAME: JUNIOR Chanel LEMUS UNIT #: [id number] ROOM: 420 DOCTOR: MANJU BRADEN BIRTHDATE: [birth year] DOS: 10/17/2017 LOCATION: [facility], room 420, bed 1. ORDERING PHYSICIAN: Dr. Altamirano. RADIOLOGIST: Dr. Martinez. BACKGROUND INFORMATION: The patient is a 72-year-old male who was seen for modified barium swallow. This test was ordered to rule out aspiration. The patient was admitted through the Emergency Department due to COPD exacerbation. Further medical history includes HTN, GERD, COPD, DM, bladder cancer, prostate cancer and pneumonia. Patient was recently hospitalized in this facility a few weeks ago and at that time, underwent a modified barium swallow which revealed transient penetration with thin liquid by cup and straw. At that time, he was recommended to consume liquids and small single sips and to drink slowly. The patient reported that he has been compliant with this at current time. He receives a regular diet and thin liquids. Respiratory status was noted to be congested this date. The patient was receiving oxygen by nasal cannula. Oral peripheral examination revealed edentulous status. Lingual, labial and buccal skills were within normal limits in terms of strength, range of motion and coordination. Laryngeal strength appeared adequate as well. METHODS AND MATERIALS USED FOR THE EXAM: The patient was positioned into the lateral plane and examination was viewed under fluoroscopy. The patient was presented with a variety of consistencies to assess swallowing skills including applesauce mixed with barium, presented in half teaspoon amounts, barium-coated cookie and sandwich given in bite size pieces and thin liquid barium taken by cup. The patient took the cup and was noted to swallow in single small sips as was previously recommended. ORAL PHASE: Unremarkable. PHARYNGEAL PHASE: Unremarkable. No penetration or aspiration occurred with any consistency. ESOPHAGEAL PHASE: This phase of the swallow was not formally assessed during this examination. IMPRESSIONS AND RECOMMENDATIONS: Based upon assessment results, this 72-year-old patient presents with oral and pharyngeal swallowing skills that are within normal limits with no oral difficulty, no penetration or aspiration and no residue. Recommend the patient remain on regular diet and thin liquids and continue to implement safe swallow strategies including small single sips of thin liquids and drinking slowly. No followup therapy is recommended at this time as he is tolerating highest level diet and using safe swallow precautions. The patient was educated on results and recommendations and verbalized understanding. His nurse was educated and verbalized understanding. Thank you very much for this referral. Should you have any questions regarding [place], [place] PROCEDURE NOTE NAME: JUNIOR Chanel LEMUS UNIT #: [id number] ROOM: [facility] DOCTOR: MANJU BRADEN BIRTHDATE: [birth year] this patient, please contact the speech pathologist at [phone]. MANJU BRADEN CM:PROCNOTE:PROCEDURE NOTE [phone] MANJU BRADEN
[~2017-10-16 13:46] MED LIST changes: +AVPAK AZITHROM250 MG PO; +PREDNISONE50 MG PO; +SUPRAX400 M2 PO
[2017-10-16 13:50] VITALS: BP 146/65
[2017-10-16 14:39] LABS: BASO % 0.3 % (0.0-1.0); EOS # 0.2 10*3/uL (0.0-0.4); EOS % 2.5 % (1.0-4.0); HEMATOCRIT 36.6 % (42.0-52.0); HEMOGLOBIN 11.3 g/dl (14.0-18.0); LYMPH # 1.3 10*3/uL (1.3-4.4); LYMPH % 19.9 % (27.0-41.0); MEAN CELL VOLUME 90.8 fl (80.0-94.0); MEAN CORPUSCULAR HGB CONC 30.9 g/dl (33.0-37.0); MEAN PLATELET VOLUME 9.4 fl (9.6-12.3); MONO # 0.3 10*3/uL (0.1-1.0); MONO % 5.3 % (3.0-9.0); NEUT # 4.6 10*3/uL (2.3-7.9); NEUT % 71.7 % (47.0-73.0); PLATELET COUNT AUTOMATED 284 10*3/uL (130-400); RED BLOOD COUNT 4.03 10*6/uL (4.50-5.90); RED CELL DISTRI WIDTH 13.2 % (0-14.5); WHITE BLOOD COUNT 6.5 10*3/uL (4.8-10.8)
[2017-10-16 14:54] LABS: ALBUMIN 3.1 gm/dl (3.1-4.5); CREATININE 1.67 mg/dL (0.70-1.30); POTASSIUM 4.7 mmol/L (3.5-5.1); TOTAL PROTEIN 7.3 gm/dL (6.4-8.2)
[2017-10-16 14:57] VITALS: BP 127/62
[2017-10-16 15:46] VITALS: BP 133/54
[2017-10-16 16:00] VITALS: BP 143/74
[2017-10-16 16:05] VITALS: BP 143/74; BP 144/84
[2017-10-16 20:00] VITALS: BP 131/65
[2017-10-17] VITALS: BP 123/63
[2017-10-17 07:13] LABS: HEMATOCRIT 33.4 % (42.0-52.0); HEMOGLOBIN 10.4 g/dl (14.0-18.0); MEAN CELL VOLUME 91.3 fl (80.0-94.0); MEAN CORPUSCULAR HGB 28.4 pg (27.0-31.0); MEAN CORPUSCULAR HGB CONC 31.1 g/dl (33.0-37.0); MEAN PLATELET VOLUME 9.7 fl (9.6-12.3); PLATELET COUNT AUTOMATED 251 10*3/uL (130-400); RED BLOOD COUNT 3.66 10*6/uL (4.50-5.90); RED CELL DISTRI WIDTH 13.2 % (0-14.5); WHITE BLOOD COUNT 4.9 10*3/uL (4.8-10.8)
[2017-10-17 07:41] LABS: CREATININE 1.75 mg/dL (0.70-1.30); POTASSIUM 4.6 mmol/L (3.5-5.1)
[2017-10-17 08:00] VITALS: BP 144/68
[2017-10-17 08:16] LABS: PLATELET SUFFICIENCY NORMAL (NORMAL); SCHISTOCYTES FEW; TOTAL CELLS COUNTED 100 #CELLS
[2017-10-17 12:00] VITALS: BP 129/55
[2017-10-17 16:00] VITALS: BP 133/58
[2017-10-17 20:00] VITALS: BP 155/69
[2017-10-18] VITALS: BP 156/72
[2017-10-18 07:33] LABS: BASO % 0.1 % (0.0-1.0); EOS % 0.1 % (1.0-4.0); HEMATOCRIT 30.5 % (42.0-52.0); HEMOGLOBIN 9.6 g/dl (14.0-18.0); LYMPH # 0.8 10*3/uL (1.3-4.4); LYMPH % 7.9 % (27.0-41.0); MEAN CELL VOLUME 90.8 fl (80.0-94.0); MEAN CORPUSCULAR HGB 28.6 pg (27.0-31.0); MEAN CORPUSCULAR HGB CONC 31.5 g/dl (33.0-37.0); MEAN PLATELET VOLUME 9.4 fl (9.6-12.3); MONO # 0.5 10*3/uL (0.1-1.0); MONO % 4.5 % (3.0-9.0); NEUT # 9.3 10*3/uL (2.3-7.9); NEUT % 87.1 % (47.0-73.0); PLATELET COUNT AUTOMATED 259 10*3/uL (130-400); RED BLOOD COUNT 3.36 10*6/uL (4.50-5.90); RED CELL DISTRI WIDTH 13.6 % (0-14.5); WHITE BLOOD COUNT 10.7 10*3/uL (4.8-10.8)
[2017-10-18 07:55] LABS: CREATININE 1.55 mg/dL (0.70-1.30); POTASSIUM 4.3 mmol/L (3.5-5.1)
[2017-10-18 08:00] VITALS: BP 130/60
[2017-10-18 12:00] VITALS: BP 145/64
[2017-10-18 16:00] VITALS: BP 152/62
[2017-10-18 20:00] VITALS: BP 145/64
[2017-10-19] VITALS: BP 133/68
[2017-10-19 07:16] LABS: BASO % 0.1 % (0.0-1.0); EOS % 0.4 % (1.0-4.0); HEMATOCRIT 31.1 % (42.0-52.0); HEMOGLOBIN 9.6 g/dl (14.0-18.0); LYMPH # 1.2 10*3/uL (1.3-4.4); LYMPH % 18.1 % (27.0-41.0); MEAN CELL VOLUME 90.9 fl (80.0-94.0); MEAN CORPUSCULAR HGB 28.1 pg (27.0-31.0); MEAN CORPUSCULAR HGB CONC 30.9 g/dl (33.0-37.0); MEAN PLATELET VOLUME 9.2 fl (9.6-12.3); MONO # 0.4 10*3/uL (0.1-1.0); MONO % 5.4 % (3.0-9.0); NEUT # 5.1 10*3/uL (2.3-7.9); NEUT % 75.6 % (47.0-73.0); PLATELET COUNT AUTOMATED 271 10*3/uL (130-400); RED BLOOD COUNT 3.42 10*6/uL (4.50-5.90); WHITE BLOOD COUNT 6.8 10*3/uL (4.8-10.8)
[2017-10-19 07:27] LABS: CREATININE 1.48 mg/dL (0.70-1.30); POTASSIUM 4.3 mmol/L (3.5-5.1)
[2017-10-19 07:46] VITALS: BP 127/65
[2017-10-19 16:00] VITALS: BP 136/63
[2017-10-19 20:00] VITALS: BP 147/66
[2017-10-20] VITALS: BP 145/58
[2017-10-20 07:56] LABS: BASO % 0.2 % (0.0-1.0); EOS # 0.2 10*3/uL (0.0-0.4); EOS % 2.5 % (1.0-4.0); HEMATOCRIT 32.6 % (42.0-52.0); HEMOGLOBIN 10.4 g/dl (14.0-18.0); LYMPH # 1.3 10*3/uL (1.3-4.4); LYMPH % 22.1 % (27.0-41.0); MEAN CELL VOLUME 91.3 fl (80.0-94.0); MEAN CORPUSCULAR HGB 29.1 pg (27.0-31.0); MEAN CORPUSCULAR HGB CONC 31.9 g/dl (33.0-37.0); MEAN PLATELET VOLUME 9.4 fl (9.6-12.3); MONO # 0.4 10*3/uL (0.1-1.0); MONO % 6.6 % (3.0-9.0); NEUT # 4.1 10*3/uL (2.3-7.9); NEUT % 68.1 % (47.0-73.0); PLATELET COUNT AUTOMATED 320 10*3/uL (130-400); RED BLOOD COUNT 3.57 10*6/uL (4.50-5.90); RED CELL DISTRI WIDTH 13.9 % (0-14.5); WHITE BLOOD COUNT 5.9 10*3/uL (4.8-10.8)
[2017-10-20 08:00] VITALS: BP 136/64
[2017-10-20 08:24] LABS: CREATININE 1.43 mg/dL (0.70-1.30); POTASSIUM 4.4 mmol/L (3.5-5.1)
[2017-10-20 08:25] VITALS: BP 130/70
[2017-10-20] MEDS ORDERED: PREDNISONE10 MG PO (10:37)
[2017-10-20] MEDS ORDERED: AVPAK AZITHROM250 M1 PO (10:37)
[2017-10-20] MEDS ORDERED: ETHAMBUTOL HCL100 MG PO (10:37)
[2017-10-20] MEDS ORDERED: Rimactane,Rifa300 MG PO (10:37)
== END 2017-10-20 11:39 | disposition home or self-care (01) | DRG 871 ==
LOC: ED 13:46 → EDHOLD 15:24 → 4E 15:24
PROVIDERS: Emergency Medicine; Family Medicine; Student in an Organized Health Care Education/Training Program
PROC: BD11YZZ Fluoroscopy of Esophagus using Other Contrast (ICD-10-PCS; principal; 2017-10-17)
PROC: BD1BYZZ Fluoroscopy of Mouth/Oropharynx using Other Contrast (ICD-10-PCS; principal; 2017-10-17)
DX: A41.9 Sepsis, unspecified organism (principal); N17.0 Acute kidney failure with tubular necrosis; J96.21 Acute and chronic respiratory failure with hypoxia; I13.0 Hypertensive heart and chronic kidney disease with heart failure and stage 1 through stage 4 chronic kidney disease, or unspecified chronic kidney disease; J18.1 Lobar pneumonia, unspecified organism; E11.65 Type 2 diabetes mellitus with hyperglycemia; E11.22 Type 2 diabetes mellitus with diabetic chronic kidney disease; I50.32 Chronic diastolic (congestive) heart failure; A31.0 Pulmonary mycobacterial infection; J44.0 Chronic obstructive pulmonary disease with (acute) lower respiratory infection; J44.1 Chronic obstructive pulmonary disease with (acute) exacerbation; D63.1 Anemia in chronic kidney disease; Z99.81 Dependence on supplemental oxygen; N18.3 Chronic kidney disease, stage 3 (moderate); K21.9 Gastro-esophageal reflux disease without esophagitis; J20.9 Acute bronchitis, unspecified; D72.810 Lymphocytopenia; I25.5 Ischemic cardiomyopathy; E78.5 Hyperlipidemia, unspecified; R91.1 Solitary pulmonary nodule; E78.00 Pure hypercholesterolemia, unspecified; F32.9 Major depressive disorder, single episode, unspecified; I25.10 Atherosclerotic heart disease of native coronary artery without angina pectoris; Z87.891 Personal history of nicotine dependence; Z85.51 Personal history of malignant neoplasm of bladder; Z86.711 Personal history of pulmonary embolism; Z93.2 Ileostomy status; Z90.6 Acquired absence of other parts of urinary tract; Z80.9 Family history of malignant neoplasm, unspecified; Z82.49 Family history of ischemic heart disease and other diseases of the circulatory system; Z88.1 Allergy status to other antibiotic agents; Z88.8 Allergy status to other drugs, medicaments and biological substances; Z79.899 Other long term (current) drug therapy; Z79.52 Long term (current) use of systemic steroids; Z85.46 Personal history of malignant neoplasm of prostate; Z90.49 Acquired absence of other specified parts of digestive tract; Z94.9 Transplanted organ and tissue status, unspecified; Z89.022 Acquired absence of left finger(s); Z83.3 Family history of diabetes mellitus; Z83.6 Family history of other diseases of the respiratory system

== ENCOUNTER 2017-11-24 15:06 | Inpatient (IN) | payer MEDICARE ==
[~2017-11-24] VITALS: Ht 170.1 cm; Wt 68.9 kg
--- NOTE | ~2017-11-24 | PR ---
[place], [place] PROGRESS NOTE NAME: JUNIOR Chanel LEMUS UNIT #: [id number] ROOM: 419 DOCTOR: YUNIER PAYTON MD,CARLOS BIRTHDATE: [birth year] DOS: 11/27/2017 SUBJECTIVE: The patient was noted comfortable at this time without any acute distress. The coughing and wheezing have been gradually subsiding. There were no symptoms of chest pain. Denies symptoms of abdominal pain. OBJECTIVE: VITAL SIGNS: For the patient, which has been recorded, shows normal temperature, respiratory rate 20, heart rate 67, blood pressure 111/62, pulse ox saturation on 3 liters nasal cannula 98% saturation. HEENT: No acute change. NECK: Supple. CARDIOVASCULAR: S1, S2 audible. LUNGS: Wheezing bilaterally, which has been noted decreased as compared in the last couple of days exam; however, the wheezing was noted incompletely resolved. There were no crackles. IMPRESSION: The patient with resolving acute exacerbation of chronic obstructive pulmonary disease gradually with reduction in the wheezing and the respiratory symptoms noted very slowly. PLAN OF MANAGEMENT: Decrease Solu-Medrol from 60 mg b.i.d. to 40 mg b.i.d. at this time. Continue the patient's current other therapy, plan of management. Supportive care. Continue physical therapy. CARLOS FAYE MD CM:PNTRANS [id number] CARLOS PAYTON MD 11/27/17 2218 interface
--- NOTE | ~2017-11-24 | PR ---
[place], [place] PROGRESS NOTE NAME: JUNIOR Chanel LEMUS UNIT #: [id number] ROOM: 419 DOCTOR: YUNIER PAYTON MD,CARLOS BIRTHDATE: [birth year] DOS: 11/28/2017 SUBJECTIVE: The patient has been noted with gradual reduction in respiratory symptoms with continued reduction in sputum expectoration, still noted the mucus. The patient's shortness of breath and wheezing was resolving. Denies any chest pain. The patient has been participating in physical therapy and occupation therapy. OBJECTIVE: VITAL SIGNS: This morning at 8:00 hours, normal temperature, respiratory rate 20, heart rate 66, blood pressure 146/64. The pulse oxygen saturation of the patient recorded as 93% saturation on 3 liters nasal cannula. HEENT: No acute change. NECK: Supple. CARDIOVASCULAR: S1, S2 audible. LUNGS: Noted without any wheezing or crackles at the present time. ABDOMEN: Soft, nontender. EXTREMITIES: Without any acute edema. IMPRESSION: The patient with resolving acute exacerbation of chronic obstructive pulmonary disease, progressively and gradually. PLAN OF MANAGEMENT: Continue steroids, bronchodilators, oxygen supplementation, and antibiotics as previously ordered. Possible discharge to home for the morning would be considered. CARLOS FAYE MD CM:PNTRANS [phone] CARLOS PAYTON MD 11/29/17 0101 interface
--- NOTE | ~2017-11-24 | EKG ---
[place], [place] ELECTROCARDIOGRAM REPORT NAME: JUNIOR Chanel LEMUS UNIT #: [id number] ROOM: 419 DOCTOR: YUNIER PAYTON MD,CARLOS BIRTHDATE: [birth year] DOS: 11/24/2017 Electrocardiogram done on 11/24/2017 at 4:13 p.m. Normal sinus rhythm noted. Heart rate 96 beats per minute. There were no changes for ischemia or arrhythmias were noted. Mild left atrial enlargement. The patient can be excluded. CARLOS FAYE MD CM:EKGRPT:ELECTROCARDIOGRAM REPORT [id number] CARLOS PAYTON MD
--- NOTE | ~2017-11-24 | PR ---
[place], [place] PROGRESS NOTE NAME: JUNIOR Chanel LEMUS UNIT #: [id number] ROOM: 419 DOCTOR: YUNIER PAYTON MD,CARLOS BIRTHDATE: [birth year] DOS: 11/26/2017 SUBJECTIVE: The patient was still noted with coughing. The patient with some sputum expectoration, reduction in the wheezing was reported. Shortness breath was also noted partially decreased. There were no symptoms of chest pain or abdominal pain. OBJECTIVE: VITAL SIGNS: Normal temperature, respiratory rate 18, heart rate 70, blood pressure 127/63. The pulse oxygen saturation on 5 L nasal cannula 99% saturation. HEENT: No acute change. NECK: Supple. CARDIOVASCULAR: S1, S2 audible. LUNGS: The patient was noted without any crackles, mild expiratory wheezing bilaterally. ABDOMEN: Soft and nontender. IMPRESSION: Stable respiratory status was noted at this time with exacerbation of chronic obstructive pulmonary disease, which is noted acute with history of chronic hypoxic respiratory failure. PLAN OF MANAGEMENT: No change in the plan of therapy. Continue current medical management. The patient seemed to be effective in improvement in the respiratory status. Continue other supportive therapy, plan of management. CARLOS FAYE MD CM:THEODORE [id number] CARLOS PAYTON MD 11/26/17 5049 interface
--- NOTE | ~2017-11-24 | PR ---
[place], [place] PROGRESS NOTE NAME: JUNIOR Chanel LEMUS UNIT #: [id number] ROOM: 419 DOCTOR: YUNIER PAYTON MD,CARLOS BIRTHDATE: [birth year] DOS: 11/29/2017 SUBJECTIVE: He has been noted with further improvement in the symptoms of wheezing, coughing has been still noted, but the quantity of sputum expectoration and coughing frequency has been decreased. The shortness of breath is improving. OBJECTIVE: VITAL SIGNS: For the patient, which was recorded showed the temperature noted as normal, the respiratory rate 20, heart rate 68, blood pressure 137/66, pulse oxygen saturation 3 liters nasal cannula 99% saturation. HEENT: No new change. NECK: Supple. CARDIOVASCULAR: S1, S2 is audible. LUNGS: Noted with questionable wheezing, no crackles. ABDOMEN: Soft, nontender. EXTREMITIES: Without any edema. LABORATORY DATA: Culture of the sputum noted normal yfn. Gram stain was pending. IMPRESSION: 1. The patient with resolving acute exacerbation of chronic obstructive pulmonary disease, acute bronchitis. 2. Mycobacterium avium intracellular infection, which has been also treated with the triple antibiotics. PLAN OF MANAGEMENT: From the pulmonary standpoint, the patient could be considered for home discharge whenever desired to the tapering dose of prednisone. Continue supportive therapy, plan of management and previous treatments. CARLOS FAYE MD CM:PNTRANS [phone] CARLOS PAYTON MD 11/29/17 2353 interface
--- NOTE | ~2017-11-24 | PR ---
[place], [place] PROGRESS NOTE NAME: JUNIOR Chanel LEMUS UNIT #: [id number] ROOM: 419 DOCTOR: YUNIER PAYTON MD,CARLOS BIRTHDATE: [birth year] DOS: 11/30/2017 SUBJECTIVE: The patient was noted comfortable at this time without any acute distress. The coughing, wheezing, shortness of breath has improved progressively. Denies symptoms of chest pain. OBJECTIVE: VITAL SIGNS: For the patient which has been recorded shows normal temperature, respiratory rate 18, heart rate of 66, blood pressure 132/55. HEENT: Showed no acute change. NECK: Supple. CARDIOVASCULAR: S1, S2 is audible. LUNGS: Noted without any wheeze or crackles. ABDOMEN: Soft, nontender. IMPRESSION: 1. The patient with resolving acute exacerbation of chronic obstructive pulmonary disease with acute bronchitis. 2. The patient chronic Mycobacterium avium complex infection of the lung, which has been treated with the medications. PLAN OF TREATMENT: No changes in plan of therapy at this time. Continue current plan of treatment, the patient could be discharged home on oral antibiotics and tapering prednisone. The culture of the sputum was noted moderate growth of gram-negative bacilli with pending identification and sensitivity. Clinical, the patient has been improving, be discharged to be followed up in the office. CARLOS FAYE MD CM:PNTRANS [phone] CARLOS PAYTON MD 12/01/17 0059 interface
--- NOTE | ~2017-11-24 | CON ---
[place], [place] REPORT OF CONSULTATION NAME: JUNIOR Chanel [id number] UNIT #: [id number] ROOM: 419 DOCTOR: YUNIER PAYTON MDCARLOS BIRTHDATE: [birth year] DOS: 11/25/2017 PULMONARY CONSULTATION EVALUATION AND MANAGEMENT CONSULTATION REQUESTED BY: Hospitalist Service. REASON FOR CONSULTATION: Assessment of acute exacerbation of COPD. HISTORY OF PRESENT ILLNESS: The patient is a 72-year-old white male known to me from the past, history of chronic Mycobacterium avium complex infection with history of COPD and chronic hypoxic respiratory failure. The patient brought to the hospital. The patient was reported with symptoms of having increased shortness of breath for 3 weeks. The patient was noted with intermittent coughing, white sputum expectoration as well. The patient denies any symptoms of hemoptysis. He has been getting the treatment for the MAC infection as well. The shortness of breath has been noted worsening. The patient requiring assessment in the Emergency Room. The patient admitted to the hospital. After assessment in the Emergency Room, the patient with acute exacerbation and bronchial asthma. This morning, the patient was assessed. He was noted to cough, which appeared to be a whitish sputum expectoration. He was complaining of symptoms of shortness of breath, which has been noted unchanged from yesterday from admission. The patient denies symptoms of chest pain, reported symptoms of wheezing intermittently as well. REVIEW OF SYSTEMS: CONSTITUTIONAL: Fatigue and tiredness noted without any symptoms of fever or chills. EYES: Denies any burning, redness, or tenderness. EARS, NOSE, AND THROAT SYMPTOMS: Sore throat, hoarseness, otalgia, and postnasal drainage. CARDIOVASCULAR: No anginal pain, edema or pain of the lower extremity. GASTROINTESTINAL: No dysphagia, nausea, vomiting, diarrhea, abdominal pain, hematemesis, melena, or hematochezia. SKIN: The patient denies any rashes or lesions. CENTRAL NERVOUS SYSTEM: No dizziness, headache, diplopia, or syncopal episodes. Remaining systems were reviewed. They were noted all negative. PAST MEDICAL HISTORY: Were known. 1. Prostate cancer, urinary bladder. The patient with diversion ileostomy for the patient and cystectomy. 2. Chronic hypoxic respiratory failure, require use of oxygen 3 liter nasal cannula. 3. COPD/centrilobular emphysema. 4. Mycobacterium avium intracellular infection. The patient diagnosed with bronchoscopy and treated with triple antibiotic therapy for this patient for about a month or so. 5. Type 2 diabetes mellitus. 6. History of gastroesophageal reflux. 7. Essential hypertension. [place], [place] REPORT OF CONSULTATION NAME: JUNIOR Chanel LEMUS UNIT #: [id number] ROOM: [facility] DOCTOR: YUNIER PAYTON MD,CARLOS BIRTHDATE: [birth year] PAST SURGICAL HISTORY: 1. Cholecystectomy. 2. Radical prostatectomy. 3. Diversion ileostomy. 4. Cystectomy. 5. 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 6. Therapeutic bronchoscopies. SOCIAL HISTORY: The patient is and lives at home. Denies any history of occupational related pulmonary exposure. The tobacco use noted from age of [age] years old, pack of cigarettes per day until 1999. FAMILY HISTORY: The patient's father at age of 9090 years old, complication of unknown cancer. Mother at age of 8080 years old, complication of unknown cancer. HOME MEDICATIONS: The patient noted use omeprazole, Glucophage, Daliresp, albuterol sulfate with nebulizer, simvastatin, Spiriva, ProAir HFA, Advair, lisinopril, ethambutol, rifampin and Zithromax. DRUG ALLERGIES: NOTED ALLERGY TO FLUOROQUINOLONES. PHYSICAL EXAMINATION: GENERAL: A 72-year-old male, who has been currently noted to be awake and alert for the patient at this time without any acute distress. The patient's height was recorded by the nursing staff for this patient with height of 5 feet 7 inches, weight 152 pounds, BMI 23.8. VITAL SIGNS: For the patient which are recorded showed normal temperature, respiratory rate 18, 33 on admission. Heart rate ranging between 72-99, blood pressure 136/66, 127/56 last 24 hours. Intake 1400 mL and 450 mL. Pulse ox saturation on 5 liter nasal cannula was 100% saturation. HEENT: Examination shows head was atraumatic. Eyes nonicterus. NECK: Supple. CARDIOVASCULAR: S1, S2 audible. LUNGS: The patient was noted with scattered occasional wheezing. Mild to moderate decreased breath sounds bilaterally. ABDOMEN: Soft without any tenderness. EXTREMITIES: Previous ileostomy for the patient noted to be in place. CENTRAL NERVOUS SYSTEM: Cranial nerves 2-12 intact. No focal deficits. SKIN: No lesions or rashes except dryness of the skin noted of the lower extremities. MUSCULOSKELETAL: Without any acute deformities. LABORATORY DATA: CBC of the patient that were done on 11/24/2017, WBC count normal, hemoglobin 12.4, hematocrit 38.9, platelet count 41,000. The lactic acid 1.8 today. Influenza A and B nasal washing antigen negative. PT and PTT were normal. The CMP of the patient on 11/24/2017, BUN 22, creatinine 1.60, glucose was rather noted as 107. Sodium and potassium were normal. Troponin of patient 3 sets yesterday were noted all normal. CBC this morning, mild anemia. [place], [place] REPORT OF CONSULTATION NAME: JUNIOR MARIAH Chanel UNIT #: [id number] ROOM: [facility] DO[facility] [birth year] The patient's hemoglobin 10.6, remaining CBC normal. PT/PTT today normal. CMP this morning, BUN 23, creatinine 1.52. The chest x-ray of the patient that was done on this admission, one view in the Emergency Room. The patient was personally reviewed and it does not show any acute pulmonary infiltration at the present time. Chronic pleural thickening on the right side remains unchanged. IMPRESSION: 1. The patient who has been noted with acute exacerbation of chronic obstructive pulmonary disease for this patient at this time with acute exacerbation. 2. The patient with chronic hypoxic respiratory failure. 3. The patient with possibility of acute kidney injury for the patient's acute intermittent volume depletion as well. 4. Past history of prostate and bladder cancer for the patient with the surgical intervention as well. 5. Chronic Mycobacterium avium complex infection involving the lungs as well. PLAN OF MANAGEMENT: The patient has been started on Solu-Medrol 60 mg b.i.d. that will be continued. His home medication for the patient for the MAC infection will be started for the patient and to be continued. Sputum for Gram stain and culture for the patient will be ordered. I am not sure the patient does have an acute superimposed bacterial infection. The antibiotic, the patient's Rocephin will be discontinued if the culture results will be noted negative. Oral Zithromax will be continued for the long-term management of MAC infection as well. Other supportive therapy, plan of management and care. Usual treatment. All other supportive plan of therapy and care. CARLOS FAYE MD CM:CONSTR:REPORT OF CONSULTATION 1328 11/25/172027 interface
[~2017-11-24 15:06] MED LIST changes: +AVPAK AZITHROM250 M1 PO; +ETHAMBUTOL HCL100 MG PO; +Rimactane,Rifa300 MG PO
[2017-11-24 15:21] VITALS: BP 162/90
[2017-11-24 16:01] LABS: BASO # 0.1 10*3/uL (0.0-0.1); BASO % 0.7 % (0.0-1.0); EOS # 0.2 10*3/uL (0.0-0.4); EOS % 2.6 % (1.0-4.0); HEMATOCRIT 38.9 % (42.0-52.0); HEMOGLOBIN 12.4 g/dl (14.0-18.0); LYMPH # 1.1 10*3/uL (1.3-4.4); LYMPH % 15.4 % (27.0-41.0); MEAN CELL VOLUME 90.9 fl (80.0-94.0); MEAN CORPUSCULAR HGB CONC 31.9 g/dl (33.0-37.0); MEAN PLATELET VOLUME 9.2 fl (9.6-12.3); MONO # 0.5 10*3/uL (0.1-1.0); MONO % 6.4 % (3.0-9.0); NEUT # 5.5 10*3/uL (2.3-7.9); NEUT % 74.6 % (47.0-73.0); PLATELET COUNT AUTOMATED 401 10*3/uL (130-400); RED BLOOD COUNT 4.28 10*6/uL (4.50-5.90); RED CELL DISTRI WIDTH 14.2 % (0-14.5); WHITE BLOOD COUNT 7.4 10*3/uL (4.8-10.8)
[2017-11-24 16:10] LABS: ACT PARTIAL THROMBO TIME 27.5 SECONDS (20.8-31.5)
[2017-11-24 16:12] VITALS: BP 125/64
[2017-11-24 16:21] LABS: ALBUMIN 3.4 gm/dl (3.1-4.5); ALKALINE PHOSPHATASE 103 U/L (45-117); BUN 23 mg/dl (7-24); CHLORIDE 103 mmol/L (98-107); POTASSIUM 4.7 mmol/L (3.5-5.1); SGOT/AST 16 IU/L (3-35); SGPT/ALT 15 U/L (12-78); SODIUM 137 mmol/L (136-145); TOTAL PROTEIN 7.7 gm/dL (6.4-8.2)
[2017-11-24 16:24] LABS: TROPONIN I < 0.015 ng/ml (<0.045)
[2017-11-24] MEDS ORDERED: SIMVASTATIN20 MG PO (16:41)
[2017-11-24 16:42] LABS: BILIRUBIN NEGATIVE (NEGATIVE); BLOOD 1+ (NEGATIVE); CLARITY SL CLOUDY (CLEAR); COLOR YELLOW (YELLOW); GLUCOSE NEGATIVE (NEGATIVE); KETONE NEGATIVE (NEGATIVE); LEUKO ESTERASE TRACE (NEGATIVE); NITRITE POSITIVE (NEGATIVE); SPECIFIC GRAVITY <= 1.005 (1.005-1.030); UROBILINOGEN 0.2 E.U./dl (0.2-1.0)
[2017-11-24] MEDS ORDERED: ADVAIR 250/501 EA INH (16:42)
[2017-11-24] MEDS ORDERED: CARVEDILOL6.25 MG PO (16:43)
[2017-11-24] MEDS ORDERED: VENTOLIN 02.5 MG/3 M INH (16:44)
[2017-11-24] MEDS ORDERED: ASPIRIN81 M1 PO (16:45)
[2017-11-24] MEDS ORDERED: NITROSTAT0.4 MG SL (16:46)
[2017-11-24] MEDS ORDERED: PREDNISONE20 M1 PO (16:47)
[2017-11-24 16:53] LABS: BACTERIA 2+
[2017-11-24 16:54] LABS: WBC 16-20 wbc/hpf (0-5)
[2017-11-24 16:55] LABS: RBC 16-20 rbc/hpf (0-2)
[2017-11-24 17:16] VITALS: BP 119/70
[2017-11-24 17:50] VITALS: BP 164/76
[2017-11-24 20:00] VITALS: BP 136/66
[2017-11-25] VITALS: BP 112/70
[2017-11-25 06:20] LABS: BASO % 0.5 % (0.0-1.0); EOS # 0.1 10*3/uL (0.0-0.4); EOS % 1.4 % (1.0-4.0); HEMATOCRIT 34.6 % (42.0-52.0); HEMOGLOBIN 10.6 g/dl (14.0-18.0); LYMPH # 1.4 10*3/uL (1.3-4.4); LYMPH % 24.6 % (27.0-41.0); MEAN CELL VOLUME 93.5 fl (80.0-94.0); MEAN CORPUSCULAR HGB 28.6 pg (27.0-31.0); MEAN CORPUSCULAR HGB CONC 30.6 g/dl (33.0-37.0); MEAN PLATELET VOLUME 9.5 fl (9.6-12.3); MONO # 0.4 10*3/uL (0.1-1.0); MONO % 7.9 % (3.0-9.0); NEUT # 3.7 10*3/uL (2.3-7.9); NEUT % 65.4 % (47.0-73.0); PLATELET COUNT AUTOMATED 314 10*3/uL (130-400); RED CELL DISTRI WIDTH 14.1 % (0-14.5); WHITE BLOOD COUNT 5.6 10*3/uL (4.8-10.8)
[2017-11-25 06:53] LABS: ALBUMIN 2.6 gm/dl (3.1-4.5); CREATININE 1.52 mg/dL (0.70-1.30); POTASSIUM 4.7 mmol/L (3.5-5.1)
[2017-11-25 06:54] LABS: TOTAL PROTEIN 6.4 gm/dL (6.4-8.2)
[2017-11-25 06:56] LABS: ACT PARTIAL THROMBO TIME 28.7 SECONDS (20.8-31.5)
[2017-11-25 08:00] VITALS: BP 127/56
[2017-11-25 16:00] VITALS: BP 126/62
[2017-11-25 20:00] VITALS: BP 140/65
[2017-11-26] VITALS: BP 124/60
[2017-11-26 06:14] LABS: BASO % 0.3 % (0.0-1.0); EOS % 0.3 % (1.0-4.0); HEMATOCRIT 34.8 % (42.0-52.0); HEMOGLOBIN 10.7 g/dl (14.0-18.0); LYMPH # 1.6 10*3/uL (1.3-4.4); LYMPH % 26.6 % (27.0-41.0); MEAN CELL VOLUME 94.1 fl (80.0-94.0); MEAN CORPUSCULAR HGB 28.9 pg (27.0-31.0); MEAN CORPUSCULAR HGB CONC 30.7 g/dl (33.0-37.0); MEAN PLATELET VOLUME 9.4 fl (9.6-12.3); MONO # 0.4 10*3/uL (0.1-1.0); MONO % 6.6 % (3.0-9.0); PLATELET COUNT AUTOMATED 296 10*3/uL (130-400); RED CELL DISTRI WIDTH 13.8 % (0-14.5); WHITE BLOOD COUNT 6.1 10*3/uL (4.8-10.8)
[2017-11-26 06:24] LABS: BUN 20 mg/dl (7-24); CHLORIDE 106 mmol/L (98-107); POTASSIUM 4.9 mmol/L (3.5-5.1); SODIUM 140 mmol/L (136-145)
[2017-11-26 08:00] VITALS: BP 127/63
[2017-11-26 12:00] VITALS: BP 130/60
[2017-11-26 16:00] VITALS: BP 139/64
[2017-11-26 20:00] VITALS: BP 146/71
[2017-11-27] VITALS: BP 152/70
[2017-11-27 07:57] VITALS: BP 111/62
[2017-11-27 12:00] VITALS: BP 121/56
[2017-11-27 16:00] VITALS: BP 138/59
[2017-11-27 20:00] VITALS: BP 133/61
[2017-11-28] VITALS: BP 146/63
[2017-11-28 08:00] VITALS: BP 147/64
[2017-11-28 12:00] VITALS: BP 133/61
[2017-11-28 16:00] VITALS: BP 151/63
[2017-11-28 20:00] VITALS: BP 145/62
[2017-11-29] VITALS: BP 122/62
[2017-11-29 08:00] VITALS: BP 137/66
[2017-11-29 12:00] VITALS: BP 135/62
[2017-11-29 16:00] VITALS: BP 140/71
[2017-11-29 20:03] VITALS: BP 118/82
[2017-11-30 00:23] VITALS: BP 125/60
[2017-11-30 05:03] LABS: BASO % 0.3 % (0.0-1.0); EOS # 0.1 10*3/uL (0.0-0.4); HEMATOCRIT 34.8 % (42.0-52.0); HEMOGLOBIN 10.9 g/dl (14.0-18.0); LYMPH # 2.8 10*3/uL (1.3-4.4); MEAN CELL VOLUME 92.6 fl (80.0-94.0); MEAN CORPUSCULAR HGB CONC 31.3 g/dl (33.0-37.0); MEAN PLATELET VOLUME 9.3 fl (9.6-12.3); MONO # 0.6 10*3/uL (0.1-1.0); NEUT # 6.2 10*3/uL (2.3-7.9); NEUT % 63.4 % (47.0-73.0); PLATELET COUNT AUTOMATED 292 10*3/uL (130-400); RED BLOOD COUNT 3.76 10*6/uL (4.50-5.90); RED CELL DISTRI WIDTH 14.1 % (0-14.5); WHITE BLOOD COUNT 9.8 10*3/uL (4.8-10.8)
[2017-11-30 05:22] LABS: BUN 19 mg/dl (7-24); CHLORIDE 103 mmol/L (98-107); POTASSIUM 4.1 mmol/L (3.5-5.1); SODIUM 140 mmol/L (136-145)
[2017-11-30 08:00] VITALS: BP 132/55
[2017-11-30] MEDS ORDERED: PREDNISONE10 MG PO (09:31)
[2017-11-30] MEDS ORDERED: SEPTDS PO (09:33)
== END 2017-11-30 09:40 | disposition home or self-care (01) | DRG 871 ==
LOC: ED 15:06 → EDHOLD 16:44 → 4E 16:44
PROVIDERS: Emergency Medicine; Family Medicine; Internal Medicine
DX: A41.9 Sepsis, unspecified organism (principal); J96.21 Acute and chronic respiratory failure with hypoxia; I13.0 Hypertensive heart and chronic kidney disease with heart failure and stage 1 through stage 4 chronic kidney disease, or unspecified chronic kidney disease; J18.1 Lobar pneumonia, unspecified organism; I50.32 Chronic diastolic (congestive) heart failure; A31.0 Pulmonary mycobacterial infection; J96.11 Chronic respiratory failure with hypoxia; E11.65 Type 2 diabetes mellitus with hyperglycemia; D47.3 Essential (hemorrhagic) thrombocythemia; C67.9 Malignant neoplasm of bladder, unspecified; N39.0 Urinary tract infection, site not specified; J44.1 Chronic obstructive pulmonary disease with (acute) exacerbation; J44.0 Chronic obstructive pulmonary disease with (acute) lower respiratory infection; E83.41 Hypermagnesemia; D63.1 Anemia in chronic kidney disease; N18.3 Chronic kidney disease, stage 3 (moderate); K21.9 Gastro-esophageal reflux disease without esophagitis; I25.10 Atherosclerotic heart disease of native coronary artery without angina pectoris; F32.9 Major depressive disorder, single episode, unspecified; E78.00 Pure hypercholesterolemia, unspecified; E78.5 Hyperlipidemia, unspecified; J20.9 Acute bronchitis, unspecified; B96.89 Other specified bacterial agents as the cause of diseases classified elsewhere; E86.9 Volume depletion, unspecified; Z99.81 Dependence on supplemental oxygen; Z88.1 Allergy status to other antibiotic agents; Z88.8 Allergy status to other drugs, medicaments and biological substances; Z79.899 Other long term (current) drug therapy; Z79.82 Long term (current) use of aspirin; Z85.51 Personal history of malignant neoplasm of bladder; Z87.01 Personal history of pneumonia (recurrent); Z86.711 Personal history of pulmonary embolism; Z89.022 Acquired absence of left finger(s); Z93.2 Ileostomy status; Z87.891 Personal history of nicotine dependence; Z82.49 Family history of ischemic heart disease and other diseases of the circulatory system; Z83.3 Family history of diabetes mellitus; Z82.5 Family history of asthma and other chronic lower respiratory diseases; Z80.8 Family history of malignant neoplasm of other organs or systems; Z90.49 Acquired absence of other specified parts of digestive tract; Z90.79 Acquired absence of other genital organ(s); Z85.46 Personal history of malignant neoplasm of prostate

== ENCOUNTER → 2018-01-14 | Outpatient (CLI) | payer MEDICARE ==
[~2018-01-14] MED LIST changes: +ASPIRIN81 M1 PO; +CARVEDILOL6.25 MG PO; +NITROSTAT0.4 MG SL; +PREDNISONE20 M1 PO; +SEPTDS PO
[2018-01-14 16:42] LABS: BASO % 0.5 % (0.0-1.0); EOS # 0.1 10*3/uL (0.0-0.4); EOS % 1.9 % (1.0-4.0); HEMATOCRIT 37.6 % (42.0-52.0); HEMOGLOBIN 11.7 g/dl (14.0-18.0); LYMPH # 2.1 10*3/uL (1.3-4.4); LYMPH % 28.8 % (27.0-41.0); MEAN CELL VOLUME 92.2 fl (80.0-94.0); MEAN CORPUSCULAR HGB 28.7 pg (27.0-31.0); MEAN CORPUSCULAR HGB CONC 31.1 g/dl (33.0-37.0); MEAN PLATELET VOLUME 8.9 fl (9.6-12.3); MONO # 0.7 10*3/uL (0.1-1.0); MONO % 9.2 % (3.0-9.0); NEUT # 4.3 10*3/uL (2.3-7.9); NEUT % 59.3 % (47.0-73.0); PLATELET COUNT AUTOMATED 300 10*3/uL (130-400); RED BLOOD COUNT 4.08 10*6/uL (4.50-5.90); RED CELL DISTRI WIDTH 13.2 % (0-14.5); WHITE BLOOD COUNT 7.3 10*3/uL (4.8-10.8)
[2018-01-14 16:57] LABS: ALBUMIN 3.4 gm/dl (3.1-4.5); ALKALINE PHOSPHATASE 106 U/L (45-117); BILIRUBIN, DIRECT < 0.1 mg/dL (0.0-0.2); SGOT/AST 15 IU/L (3-35); SGPT/ALT 16 U/L (12-78); TOTAL PROTEIN 7.1 gm/dL (6.4-8.2)
== END | disposition home or self-care (01) ==
LOC: LAB 16:28
PROVIDERS: Internal Medicine Critical Care Medicine
DX: Z51.81 Encounter for therapeutic drug level monitoring (principal); Z79.899 Other long term (current) drug therapy

== ENCOUNTER 2018-02-23 10:51 | Inpatient (IN) | payer MEDICARE ==
[~2018-02-23] VITALS: Ht 170.1 cm; Wt 75.7 kg
--- NOTE | ~2018-02-23 | CON ---
[place], [place] REPORT OF CONSULTATION NAME: [facility]UNIOR Chanel [facility] [id number] UNIT #: [id number] ROOM: 406 DOCTOR: YUNIER PAYTON MDCARLOS BIRTHDATE: [birth year] DOS: 02/24/2018 PULMONARY CONSULTATION, EVALUATION, AND MANAGEMENT REASON FOR CONSULTATION: Consultation requested for assessment of acute exacerbation of COPD. HISTORY OF PRESENT ILLNESS: This is a 72-year-old white male who has been known very well to me. He has been currently treated with long-term therapy for the MAC. The patient has been tolerating the treatment. He has been noted in usual state of health, in the past 2 to 3 days noted with increased symptoms of shortness of breath with chest congestion and cough, which was noted with small amount of sputum expectoration. The patient denies symptoms of hemoptysis with that. The sputum expectoration described whitish in color. The wheezing was also noted occurring at rest. He has been assessed in the Emergency Room. The patient brought to the hospital by the family members on 02/23/2018 and recommended hospitalization for the medical management of acute exacerbation of COPD. He has been known with history of chronic nonspecific chest pain, etiology unclear. REVIEW OF SYSTEMS: Remaining systems for the patient reviewed as follows: EARS, NOSE, AND THROAT SYMPTOMS: No sore throat, hoarseness, otalgia, or postnasal drainage. CONSTITUTIONAL SYMPTOMS: Denies any symptoms of fevers, chills, or changes in appetite. CARDIOVASCULAR SYSTEM: Denies symptoms of palpitation, edema, or pain of the lower extremities. GASTROINTESTINAL SYMPTOMS: No dysphagia, nausea, vomiting, diarrhea, abdominal pain, hematemesis, melena, or hematochezia. GENITOURINARY SYMPTOMS: There were no symptoms of suprapubic pain. MUSCULOSKELETAL SYMPTOMS: No acute joint pain, redness, or tenderness. SKIN: Denies lesions or rashes. CENTRAL NERVOUS SYSTEM: Denies symptoms of dizziness, headache, diplopia, or syncopal episodes. Remaining systems were reviewed with patient and they were noted all negative. PAST MEDICAL HISTORY, SURGICAL HISTORY, SOCIAL HISTORY, AND FAMILY HISTORY: Were all reviewed with the patient and they were noted unchanged since my consultation that was completed on 11/25/2017. The records has been available and [facility] document for any reference. MEDICATIONS: Current medications administered noted use of ethambutol on Sunday, Sunday, and Sunday; Solu-Medrol 60 mg q.8 hours, aspirin 81 mg p.o. daily, Daliresp 500 mcg daily, Protonix 40 mg daily, Dulera 200 mcg 2 inhalations b.i.d., Mucinex 1200 mg p.o. b.i.d., trazodone 50 mg at bedtime, DuoNeb q.4 hours while awake, and use of Rocephin and IV Zithromax. DRUG ALLERGIES: THE DRUG ALLERGY HISTORY WAS NOTED WITH ALLERGIES: CIPROFLOXACIN AND OTHER FLUOROQUINOLONES. [place], [place] REPORT OF CONSULTATION NAME: JUNIOR Chanel LEMUS UNIT #: [id number] ROOM: [facility] DOCTOR: YUNIER PAYTON MD,CARLOS BIRTHDATE: [birth year] PHYSICAL EXAMINATION: GENERAL: A 72-year-old white male who has been currently noted to be awake and alert without acute distress using his oxygen supplementation on nasal cannula. The patient has not been noted any distress and cooperative with examination. The height for this patient recorded on the current admission by the nursing staff with height of 5 feet 7 inches, weight 167 pounds, and BMI 26. VITAL SIGNS: Temperature 100 degrees Fahrenheit, normal temperature from admission, respiratory rate 36-18, heart rate 80-133, and blood pressure 126/72-124/58. Pulse oxygen saturation on 3 liters nasal cannula is 94% saturation. HEENT: On examination, mild senile hearing loss. Head was atraumatic. NECK: Supple. CARDIOVASCULAR SYSTEM: S1, S2 audible. LUNGS: Noted with moderate decreased breath sounds, scattered crackles. No wheezing. ABDOMEN: Soft, nontender. Diversion ileostomy. CENTRAL NERVOUS SYSTEM: Cranial nerves 2-12 intact. No focal deficit. MUSCULOSKELETAL SYMPTOMS: Without acute deformity. VISIBLE SKIN: No lesions or rashes. LABORATORY DATA: CBC that was done yesterday, WBC count 13.0, hemoglobin 12.9, hematocrit 40.2, and platelet count were normal. The PT and PTT were noted normal. CMP of the patient on 02/23/2018, BUN 23, creatinine 1.53, and sodium 133. Arterial blood gas yesterday, pH 7.43, pCO2 34, and pO2 93 on 3 liters cannula. Influenza A and B nasal washing antigens were noted as negative. The CMP of the patient that was done this morning shows BUN 27, creatinine 1.51, glucose 170, and sodium 135. CBC this morning, WBC count 16.2, hemoglobin 11.5, hematocrit 36.2, and platelet count was normal. Influenza A and B, nasal washing antigen negative. Chest x-ray of the patient of 02/23/2018 was noted with changes of COPD were noted without any acute pulmonary infiltration. IMPRESSION: 1. The patient who has been admitted to the hospital noted low-grade fever with recurrent exacerbation of chronic obstructive pulmonary disease with acute bronchitis with viral bronchitis or bacteria at this time was not clear. 2. History of chronic Mycobacterium avium complex infection of the lungs, which has been treated with the triple antibiotic therapy including rifampin as well as the use of ethambutol and Zithromax combination, seemed to be tolerated without side effects. 3. History of chronic hypoxic respiratory failure and chronic kidney disease stage 3. PLAN OF TREATMENT: Decrease Solu-Medrol to 60 mg b.i.d. dosing since the patient has been improving with current medical management at this time. He will be resumed his triple antibiotics ____ as well with changing the dose of ethambutol to 500 mg on Sunday, Sunday, and Sunday. Starting the patient on rifampin 300 mg b.i.d. on Sunday, Sunday, and Sunday and continue Zithromax, which is currently given intravenously that will also treat his bronchitis. Obtain the sputum for Gram stain and culture as well. Additional treatment changes will be made based on progression of the illness. Usual care. [place], [place] REPORT OF CONSULTATION NAME: JUNIOR Chanel LEMUS UNIT #: [id number] ROOM: [facility] DOCTOR: CARLOS PRO MD BIRTHDATE: [birth year] Thanks for allowing me to participate in care of this patient. CARLOS FAYE MD CM:CONSTR:REPORT OF CONSULTATION 1335 02/25/18 0255 interface
--- NOTE | ~2018-02-23 | PR ---
[place], [place] PROGRESS NOTE NAME: JUNIOR Chanel [id number] UNIT #: [id number] ROOM: 406 DOCTOR: YUNIER PAYTON MD,CARLOS BIRTHDATE: [birth year] DOS: 02/25/2018 SUBJECTIVE: He has been showing continued reduction of the respiratory complaints. Sputum culture was collected yesterday. Shortness of breath, coughing, wheezing, other symptoms have been gradually subsiding. There were no symptoms of chest pain. OBJECTIVE: VITAL SIGNS: For the patient which were recorded for the patient this morning shows normal temperature, respiratory rate 18, heart rate 81, blood pressure 137/51, pulse oxygen saturation of the patient recorded as 96% on 3 liters nasal cannula. HEENT: Head was atraumatic. Eyes nonicterus. NECK: Supple. CARDIOVASCULAR: S1, S2 audible. LUNGS: The patient was noted with moderate decreased breath sounds, and occasional wheezing. No crackles. ABDOMEN: Soft and nontender. Bowel sounds present. EXTREMITIES: Without any acute edema. IMPRESSION: 1. The patient with resolving acute exacerbation of chronic obstructive pulmonary disease for this patient progressively with current medical management. 2. History of Mycobacterium avium infection and pulmonary nodules, responding to the treatment the patient progressively. PLAN OF MANAGEMENT: No changes in the plan of therapy for the patient at this time. Continuation of the current plan of therapy is in progress. Usual care. Supportive therapy and other treatments. CARLOS FAYE MD CM:PNTRANS [id number] CARLOS PAYTON MD 02/25/18 1413 interface
--- NOTE | ~2018-02-23 | PR ---
[place], [place] PROGRESS NOTE NAME: JUNIOR Chanel LEMUS UNIT #: [id number] ROOM: 406 DOCTOR: YUNIER PAYTON MD,CARLOS BIRTHDATE: [birth year] DOS: 02/26/2018 PULMONARY PROGRESS NOTE SUBJECTIVE: The coughing in patient has been subsiding gradually with decreased shortness of breath and wheezing. The patient denies symptoms of chest pain or hemoptysis. OBJECTIVE: VITAL SIGNS: Normal temperature, respiratory rate 20, heart rate 95, blood pressure 150/62. Pulse oxygen saturation, ____ 93% saturation. HEENT: Examination shows head was atraumatic. Eyes nonicterus. NECK: Supple. CARDIOVASCULAR: S1, S2 audible. LUNGS: The patient was noted without any wheeze or crackle at the present time. ABDOMEN: Soft, nontender and obese. EXTREMITIES: Without edema. LABORATORY DATA: Culture of the sputum, noted normal yfn. CBC, WBC count 15.3, hemoglobin 10.8, platelet count was normal. CMP this morning, BUN 40, creatinine 1.47. IMPRESSION: 1. Resolving acute exacerbation of chronic obstructive pulmonary disease with acute bronchitis with the current plan of management. 2. History of Mycobacterium avium complex infection, which has been treated with the triple antibiotic, so far tolerated very well without any side effects. PLAN OF MANAGEMENT: The patient could be considered for home discharge at this time without any changes. ____ needs to be done, otherwise. Tapering dose of prednisone will be given. The patient was advised. Continue other treatment and outpatient followup as previously scheduled for routine visit. CARLOS FAYE MD CM:PNTRANS [id number] CARLOS PAYTON MD 02/26/18 1825 interface
--- NOTE | ~2018-02-23 | EKG ---
[place], [place] ELECTROCARDIOGRAM REPORT NAME: JUNIOR Chanel LEMUS UNIT #: [id number] ROOM: 406 DOCTOR: YUNIER PAYTON MD,CARLOS BIRTHDATE: [birth year] DOS: 02/23/2018 The electrocardiogram done at 10:58 a.m. Sinus tachycardia noted with a heart rate of 132 beats per minute. Possibility of right atrial enlargement would be considered. CARLOS FAYE MD CM:EKGRPT:ELECTROCARDIOGRAM REPORT 1405 [id number] CARLOS PAYTON MD
[2018-02-23 10:51] VITALS: BP 126/72
[2018-02-23 11:27] LABS: BASO % 0.2 % (0.0-1.0); EOS # 0.1 10*3/uL (0.0-0.4); EOS % 0.5 % (1.0-4.0); HEMATOCRIT 40.2 % (42.0-52.0); HEMOGLOBIN 12.9 g/dl (14.0-18.0); LYMPH # 0.6 10*3/uL (1.3-4.4); LYMPH % 4.2 % (27.0-41.0); MEAN CELL VOLUME 87.6 fl (80.0-94.0); MEAN CORPUSCULAR HGB 28.1 pg (27.0-31.0); MEAN CORPUSCULAR HGB CONC 32.1 g/dl (33.0-37.0); MEAN PLATELET VOLUME 8.9 fl (9.6-12.3); MONO # 0.8 10*3/uL (0.1-1.0); MONO % 6.4 % (3.0-9.0); NEUT # 11.5 10*3/uL (2.3-7.9); NEUT % 88.2 % (47.0-73.0); PLATELET COUNT AUTOMATED 320 10*3/uL (130-400); RED BLOOD COUNT 4.59 10*6/uL (4.50-5.90); RED CELL DISTRI WIDTH 13.1 % (0-14.5)
[2018-02-23 11:40] LABS: ACT PARTIAL THROMBO TIME 30.2 SECONDS (20.8-31.5); INTERNATIONAL NORM RATIO 0.9 (2.0-3.5)
[2018-02-23 11:45] LABS: ALBUMIN 3.6 gm/dl (3.1-4.5); ALKALINE PHOSPHATASE 142 U/L (45-117); BUN 23 mg/dl (7-24); CHLORIDE 99 mmol/L (98-107); CREATININE 1.53 mg/dL (0.70-1.30); POTASSIUM 4.4 mmol/L (3.5-5.1); SGOT/AST 16 IU/L (3-35); SGPT/ALT 18 U/L (12-78); SODIUM 133 mmol/L (136-145); TOTAL PROTEIN 7.5 gm/dL (6.4-8.2)
[2018-02-23 11:47] LABS: TROPONIN I < 0.015 ng/ml (<0.045)
[2018-02-23 12:05] LABS: BILIRUBIN NEGATIVE (NEGATIVE); BLOOD TRACE-INTACT (NEGATIVE); CLARITY SL CLOUDY (CLEAR); COLOR YELLOW (YELLOW); GLUCOSE NEGATIVE (NEGATIVE); KETONE TRACE (NEGATIVE); LEUKO ESTERASE NEGATIVE (NEGATIVE); NITRITE POSITIVE (NEGATIVE); UROBILINOGEN 0.2 E.U./dl (0.2-1.0)
[2018-02-23 12:12] LABS: BACTERIA 3+; WBC 16-20 wbc/hpf (0-5)
[2018-02-23 12:32] VITALS: BP 132/63
[2018-02-23 13:00] LABS: ABG BASE EXCESS -2.3 mmol/L (-2.0-2.0); ABG HCO3 21.3 mmol/l (22-26); ABG O2 SATURATION 96.8 % (95-97); ARTERIAL BLOOD GAS PCO2 34.9 mmHg (35-45); ARTERIAL BLOOD GAS PH 7.403 (7.35-7.45); ARTERIAL BLOOD GAS PO2 93.6 mmHg (80-90)
[2018-02-23 13:40] VITALS: BP 137/62
[2018-02-23] MEDS ORDERED: ETHAMBUTOL HCL400 MG PO (15:24)
[2018-02-23 16:00] VITALS: BP 134/58
[2018-02-23 20:00] VITALS: BP 131/59
[2018-02-24 06:34] LABS: HEMATOCRIT 36.2 % (42.0-52.0); HEMOGLOBIN 11.5 g/dl (14.0-18.0); MEAN CELL VOLUME 87.7 fl (80.0-94.0); MEAN CORPUSCULAR HGB 27.8 pg (27.0-31.0); MEAN CORPUSCULAR HGB CONC 31.8 g/dl (33.0-37.0); MEAN PLATELET VOLUME 9.5 fl (9.6-12.3); PLATELET COUNT AUTOMATED 299 10*3/uL (130-400); RED BLOOD COUNT 4.13 10*6/uL (4.50-5.90); RED CELL DISTRI WIDTH 13.2 % (0-14.5); WHITE BLOOD COUNT 16.2 10*3/uL (4.8-10.8)
[2018-02-24 07:09] LABS: ALBUMIN 3.1 gm/dl (3.1-4.5); POTASSIUM 4.3 mmol/L (3.5-5.1)
[2018-02-24 07:10] LABS: CREATININE 1.51 mg/dL (0.70-1.30); PHOSPHOROUS 2.9 mg/dL (2.5-4.9); TOTAL PROTEIN 6.9 gm/dL (6.4-8.2)
[2018-02-24 07:22] LABS: TOTAL CELLS COUNTED 100 #CELLS
[2018-02-24 07:26] LABS: BURR CELLS FEW; PLATELET SUFFICIENCY NORMAL (NORMAL)
[2018-02-24 08:00] VITALS: BP 124/58
[2018-02-24 12:00] VITALS: BP 136/62
[2018-02-24 16:00] VITALS: BP 131/53
[2018-02-24 20:00] VITALS: BP 139/56
[2018-02-25] VITALS: BP 120/53
[2018-02-25 07:13] LABS: HEMATOCRIT 35.6 % (42.0-52.0); HEMOGLOBIN 11.4 g/dl (14.0-18.0); MEAN CELL VOLUME 87.9 fl (80.0-94.0); MEAN CORPUSCULAR HGB 28.1 pg (27.0-31.0); MEAN PLATELET VOLUME 9.7 fl (9.6-12.3); PLATELET COUNT AUTOMATED 302 10*3/uL (130-400); RED BLOOD COUNT 4.05 10*6/uL (4.50-5.90); RED CELL DISTRI WIDTH 13.4 % (0-14.5); WHITE BLOOD COUNT 16.6 10*3/uL (4.8-10.8)
[2018-02-25 07:40] LABS: ALBUMIN 2.8 gm/dl (3.1-4.5); CREATININE 1.49 mg/dL (0.70-1.30); POTASSIUM 4.5 mmol/L (3.5-5.1); TOTAL PROTEIN 6.9 gm/dL (6.4-8.2)
[2018-02-25 08:00] VITALS: BP 137/51
[2018-02-25 08:28] LABS: PLATELET SUFFICIENCY NORMAL (NORMAL); TOTAL CELLS COUNTED 100 #CELLS
[2018-02-25 12:00] VITALS: BP 154/64
[2018-02-25 16:00] VITALS: BP 133/62
[2018-02-25 20:16] VITALS: BP 157/59
[2018-02-26 00:31] VITALS: BP 117/70
[2018-02-26 06:58] LABS: HEMATOCRIT 34.5 % (42.0-52.0); HEMOGLOBIN 10.8 g/dl (14.0-18.0); MEAN CELL VOLUME 88.9 fl (80.0-94.0); MEAN CORPUSCULAR HGB 27.8 pg (27.0-31.0); MEAN CORPUSCULAR HGB CONC 31.3 g/dl (33.0-37.0); MEAN PLATELET VOLUME 9.2 fl (9.6-12.3); PLATELET COUNT AUTOMATED 310 10*3/uL (130-400); RED BLOOD COUNT 3.88 10*6/uL (4.50-5.90); RED CELL DISTRI WIDTH 13.5 % (0-14.5); WHITE BLOOD COUNT 15.3 10*3/uL (4.8-10.8)
[2018-02-26 07:33] LABS: BURR CELLS FEW; PLATELET SUFFICIENCY NORMAL (NORMAL); POLYCHROMASIA SLIGHT; TOTAL CELLS COUNTED 100 #CELLS
[2018-02-26 08:00] VITALS: BP 158/62
[2018-02-26 11:01] LABS: CREATININE 1.47 mg/dL (0.70-1.30); POTASSIUM 4.1 mmol/L (3.5-5.1)
[2018-02-26 12:00] VITALS: BP 162/76
[2018-02-26] MEDS ORDERED: DOXYCYCLINE100 M3 PO (13:15)
[2018-02-26] MEDS ORDERED: PREDNISONE10 MG PO (13:15)
[2018-02-26] MEDS ORDERED: Rimactane,Rifa300 MG PO ×2 (13:23)
== END 2018-02-26 14:16 | disposition home or self-care (01) | DRG 871 ==
LOC: ED 10:51 → 4E 12:44 → EDHOLD 12:44 → 4E 13:19
PROVIDERS: Internal Medicine; Registered Nurse
DX: A41.9 Sepsis, unspecified organism (principal); J18.9 Pneumonia, unspecified organism; J96.21 Acute and chronic respiratory failure with hypoxia; N18.3 Chronic kidney disease, stage 3 (moderate); D63.1 Anemia in chronic kidney disease; Z99.81 Dependence on supplemental oxygen; J44.1 Chronic obstructive pulmonary disease with (acute) exacerbation; E87.1 Hypo-osmolality and hyponatremia; J44.0 Chronic obstructive pulmonary disease with (acute) lower respiratory infection; D47.3 Essential (hemorrhagic) thrombocythemia; K21.9 Gastro-esophageal reflux disease without esophagitis; J20.8 Acute bronchitis due to other specified organisms; I12.9 Hypertensive chronic kidney disease with stage 1 through stage 4 chronic kidney disease, or unspecified chronic kidney disease; E78.00 Pure hypercholesterolemia, unspecified; F32.9 Major depressive disorder, single episode, unspecified; I25.10 Atherosclerotic heart disease of native coronary artery without angina pectoris; R73.9 Hyperglycemia, unspecified; Z66 Do not resuscitate; Z51.5 Encounter for palliative care; E83.41 Hypermagnesemia; Z88.1 Allergy status to other antibiotic agents; Z88.8 Allergy status to other drugs, medicaments and biological substances; Z79.82 Long term (current) use of aspirin; Z79.899 Other long term (current) drug therapy; Z85.51 Personal history of malignant neoplasm of bladder; Z86.711 Personal history of pulmonary embolism; Z85.46 Personal history of malignant neoplasm of prostate; Z87.440 Personal history of urinary (tract) infections; Z90.6 Acquired absence of other parts of urinary tract; Z89.022 Acquired absence of left finger(s); Z72.89 Other problems related to lifestyle; Z83.3 Family history of diabetes mellitus; Z83.6 Family history of other diseases of the respiratory system; Z82.49 Family history of ischemic heart disease and other diseases of the circulatory system; Z80.9 Family history of malignant neoplasm, unspecified

== ENCOUNTER → 2018-07-11 | Outpatient (CLI) | payer MEDICARE ==
[~2018-07-11] MED LIST changes: +COLACE100 MG PO; +ETHAMBUTOL HCL400 MG PO; +MIRALAX POWDER17 G1 PO; +ZITHROMAX500 MG PO
[2018-07-11 13:59] LABS: BASO # 0.1 10*3/uL (0.0-0.1); BASO % 0.8 % (0.0-1.0); EOS # 0.2 10*3/uL (0.0-0.4); EOS % 3.1 % (1.0-4.0); HEMATOCRIT 38.4 % (42.0-52.0); HEMOGLOBIN 11.9 g/dl (14.0-18.0); LYMPH # 1.7 10*3/uL (1.3-4.4); LYMPH % 23.9 % (27.0-41.0); MEAN CELL VOLUME 91.9 fl (80.0-94.0); MEAN CORPUSCULAR HGB 28.5 pg (27.0-31.0); MEAN PLATELET VOLUME 8.9 fl (9.6-12.3); MONO # 0.5 10*3/uL (0.1-1.0); MONO % 7.5 % (3.0-9.0); NEUT # 4.6 10*3/uL (2.3-7.9); NEUT % 64.4 % (47.0-73.0); PLATELET COUNT AUTOMATED 302 10*3/uL (130-400); RED BLOOD COUNT 4.18 10*6/uL (4.50-5.90); RED CELL DISTRI WIDTH 13.1 % (0-14.5); WHITE BLOOD COUNT 7.1 10*3/uL (4.8-10.8)
[2018-07-11 14:16] LABS: ALBUMIN 3.4 gm/dl (3.1-4.5); ALKALINE PHOSPHATASE 108 U/L (45-117); BILIRUBIN, DIRECT < 0.1 mg/dL (0.0-0.2); SGOT/AST 16 IU/L (3-35); SGPT/ALT 15 U/L (12-78); TOTAL PROTEIN 7.3 gm/dL (6.4-8.2)
== END | disposition home or self-care (01) ==
LOC: LAB 13:30
PROVIDERS: Internal Medicine Critical Care Medicine
DX: I10 Essential (primary) hypertension (principal); J44.9 Chronic obstructive pulmonary disease, unspecified; Z79.899 Other long term (current) drug therapy

== ENCOUNTER → 2018-07-31 | Outpatient (CLI) | payer MEDICARE ==
[2018-07-31 15:32] LABS: BASO # 0.1 10*3/uL (0.0-0.1); BASO % 0.8 % (0.0-1.0); EOS # 0.3 10*3/uL (0.0-0.4); HEMATOCRIT 39.4 % (42.0-52.0); HEMOGLOBIN 12.1 g/dl (14.0-18.0); LYMPH # 1.5 10*3/uL (1.3-4.4); LYMPH % 23.2 % (27.0-41.0); MEAN CELL VOLUME 91.4 fl (80.0-94.0); MEAN CORPUSCULAR HGB 28.1 pg (27.0-31.0); MEAN CORPUSCULAR HGB CONC 30.7 g/dl (33.0-37.0); MEAN PLATELET VOLUME 9.3 fl (9.6-12.3); MONO # 0.6 10*3/uL (0.1-1.0); MONO % 8.7 % (3.0-9.0); PLATELET COUNT AUTOMATED 323 10*3/uL (130-400); RED BLOOD COUNT 4.31 10*6/uL (4.50-5.90); RED CELL DISTRI WIDTH 13.5 % (0-14.5); WHITE BLOOD COUNT 6.4 10*3/uL (4.8-10.8)
[2018-07-31 15:33] LABS: ALBUMIN 3.5 gm/dl (3.1-4.5); BILIRUBIN, DIRECT 0.1 mg/dL (0.0-0.2); TOTAL PROTEIN 7.8 gm/dL (6.4-8.2)
== END | disposition home or self-care (01) ==
LOC: LAB 14:44
PROVIDERS: Internal Medicine Critical Care Medicine
DX: Z51.81 Encounter for therapeutic drug level monitoring (principal); Z79.899 Other long term (current) drug therapy

== ENCOUNTER → 2019-03-26 | Outpatient (CLI) | payer MEDICARE ==
[~2019-03-26] MED LIST changes: +DELTASONE20 M1 PO; +VIBRAMYCIN100 MG PO
[2019-03-26 16:29] LABS: HEMATOCRIT 41.9 % (42.0-52.0); HEMOGLOBIN 12.8 g/dl (14.0-18.0); MEAN CELL VOLUME 95.2 fl (80.0-94.0); MEAN CORPUSCULAR HGB 29.1 pg (27.0-31.0); MEAN CORPUSCULAR HGB CONC 30.5 g/dl (33.0-37.0); MEAN PLATELET VOLUME 9.5 fl (9.6-12.3); RED BLOOD COUNT 4.4 10*6/uL (4.50-5.90); RED CELL DISTRI WIDTH 12.3 % (0-14.5); WHITE BLOOD COUNT 7.7 10*3/uL (4.8-10.8)
[2019-03-26 16:50] LABS: ALBUMIN 3.6 gm/dl (3.1-4.5); CREATININE 1.47 mg/dL (0.70-1.30); POTASSIUM 4.9 mmol/L (3.5-5.1); TOTAL PROTEIN 7.6 gm/dL (6.4-8.2)
[2019-03-26 16:56] LABS: THYROID STIM HORMONE (HS) 0.765 uIU/ml (0.358-4.75)
== END | disposition home or self-care (01) ==
LOC: LAB 15:52
PROVIDERS: Family Medicine
DX: E55.9 Vitamin D deficiency, unspecified (principal); E78.00 Pure hypercholesterolemia, unspecified; R06.02 Shortness of breath; J44.9 Chronic obstructive pulmonary disease, unspecified; I25.10 Atherosclerotic heart disease of native coronary artery without angina pectoris; K21.9 Gastro-esophageal reflux disease without esophagitis

== ENCOUNTER → 2019-05-06 | Outpatient (CLI) | payer MEDICARE ==
--- NOTE | ~2019-05-06 | ST ---
[place], [place] EXERCISE STRESS TEST REPORT NAME: JUNIOR Chanel LEMUS UNIT #: [id number] ROOM: DOCTOR: MITUL HOGAN MD BIRTHDATE: [birth year] DOS: 05/06/2019 LEXISCAN PORTION OF THE LEXISCAN CARDIOLITE Baseline cardiogram, sinus rhythm with nonspecific ST-T changes. Lexiscan, no new EKG changes, did have some shortness of breath. Blood pressure and heart rate are normal. Nuclear images will be reported separately. MITUL HOGAN MD CM:STRESS:EXERCISE STRESS TEST REPORT 2 MITUL HOGAN MD
--- NOTE | 2019-05-06 07:08 | NUR ---
INFORMED SIGNED CONSENT OBTAINED FOR LEXISCAN STRESS TEST WITH DR HOGAN. RESTING EKG NSR HR 76 BP 150/58. PULSE OX 98% ON 3L. EX WHEEZES THROUGH OUT NOTED. PT COMPLETED ONE MINUTE OF A LEXISCAN PROTOCOL WITH PT RECEIVING LEXISCAN 0.4MG IV OVER 10 SECONDS. NO ARRHYTHMI[address] OR ST CHANGES NOTED. PT HAD INCREASED SOB WITH INJECTION, PULSE OX REMAINED 100% ON 3L. LAST RECOVERY HR OF 98 BP 148/54. PT IN STABLE CONDITION, AWAITING NUCLEAR IMAGES.
== END | disposition home or self-care (01) ==
LOC: CARD 01:52
DX: R07.89 Other chest pain (principal)

== ENCOUNTER 2020-03-22 14:13 | Inpatient (IN) | payer MEDICARE ==
[~2020-03-22] VITALS: Ht 167.6 cm; Wt 91.7 kg
[2020-03-22 14:21] VITALS: BP 156/76
[2020-03-22 15:36] LABS: BASO % 0.3 % (0.0-1.0); HEMATOCRIT 39.1 % (42.0-52.0); LYMPH # 0.9 10*3/uL (1.3-4.4); MEAN CELL VOLUME 97.3 fl (80.0-94.0); MEAN CORPUSCULAR HGB 29.9 pg (27.0-31.0); MEAN CORPUSCULAR HGB CONC 30.7 g/dl (33.0-37.0); MEAN PLATELET VOLUME 9.3 fl (9.6-12.3); MONO # 0.5 10*3/uL (0.1-1.0); NEUT # 5.2 10*3/uL (2.3-7.9); NEUT % 79.2 % (47.0-73.0); PLATELET COUNT AUTOMATED 214 10*3/uL (130-400); RED BLOOD COUNT 4.02 10*6/uL (4.50-5.90); RED CELL DISTRI WIDTH 12.6 % (0-14.5); WHITE BLOOD COUNT 6.6 10*3/uL (4.8-10.8)
[2020-03-22 15:59] LABS: ALBUMIN 3.3 gm/dl (3.1-4.5); ALKALINE PHOSPHATASE 93 U/L (45-117); BUN 15 mg/dl (7-24); CHLORIDE 107 mmol/L (98-107); CREATININE 1.19 mg/dL (0.70-1.30); POTASSIUM 4.5 mmol/L (3.5-5.1); SGOT/AST 18 IU/L (3-35); SGPT/ALT 20 U/L (12-78); SODIUM 139 mmol/L (136-145); TOTAL PROTEIN 6.9 gm/dL (6.4-8.2)
[2020-03-22 16:10] LABS: TROPONIN I < 0.015 ng/ml (<0.045)
[2020-03-22 17:21] VITALS: BP 148/53
[2020-03-22 18:00] VITALS: BP 156/63
--- NOTE | 2020-03-22 18:00 | NUR ---
Time: 1800 A 74 year old MALE admitted to 5E under services of DR. NOEL ODELL,TAYA Carreon. Pt. arrived via bed from ER. Chief complaint: PNEUMONIA. PATIENT ORIENTED TO THE FLOOR 5E. CALL LIGHT REVIEWED. PATIENT FORMS REVIEWED AND COMPLETED. ORDERS RECEIVED FROM DR. COHNE. FANI ROSE
--- NOTE | 2020-03-22 18:11 | NUR ---
DR. FAYE NOTIFIED OF ROUTINE CONSUTL. PATIENT CONDITION REVIEWED. ORDERS RECEIVED.
[2020-03-22 20:00] VITALS: BP 131/88
--- NOTE | 2020-03-22 22:18 | NUR ---
IN TO ASSESS PATIENT. NO SIGNS OF DISCOMFORT OR DISTRESS NOTED. LUNGS RHONCHI/WHEEZES THROUGHOUT. 3L NC DEPENDENT.PRODUCTIVE COUGH. SPUTUM SENT TO LAB. A&OX3. BED LOCKED IN LOWEST POSITION. WILL CONTINUE TO MONITOR.
[2020-03-23] VITALS: BP 158/54
--- NOTE | 2020-03-23 01:17 | NUR ---
24 HOUR CHART CHECK COMPLETE.
[2020-03-23 07:02] LABS: BASO % 0.2 % (0.0-1.0); LYMPH # 1.8 10*3/uL (1.3-4.4); LYMPH % 31.5 % (27.0-41.0); MEAN CELL VOLUME 96.9 fl (80.0-94.0); MEAN CORPUSCULAR HGB 30.1 pg (27.0-31.0); MEAN CORPUSCULAR HGB CONC 31.1 g/dl (33.0-37.0); MEAN PLATELET VOLUME 9.4 fl (9.6-12.3); MONO # 0.6 10*3/uL (0.1-1.0); MONO % 10.4 % (3.0-9.0); NEUT # 3.4 10*3/uL (2.3-7.9); NEUT % 57.7 % (47.0-73.0); PLATELET COUNT AUTOMATED 195 10*3/uL (130-400); RED BLOOD COUNT 3.82 10*6/uL (4.50-5.90); RED CELL DISTRI WIDTH 12.5 % (0-14.5); WHITE BLOOD COUNT 5.9 10*3/uL (4.8-10.8)
[2020-03-23 07:11] LABS: ALBUMIN 2.8 gm/dl (3.1-4.5); BUN 17 mg/dl (7-24); CHLORIDE 107 mmol/L (98-107); POTASSIUM 4.4 mmol/L (3.5-5.1); SODIUM 140 mmol/L (136-145)
[2020-03-23 07:15] LABS: ALKALINE PHOSPHATASE 80 U/L (45-117); CREATININE 1.34 mg/dL (0.70-1.30); SGOT/AST 17 IU/L (3-35); SGPT/ALT 17 U/L (12-78); TOTAL PROTEIN 6.1 gm/dL (6.4-8.2)
--- NOTE | 2020-03-23 07:18 | NUR ---
24 HR CHART CHECK COMPLETE.
--- NOTE | 2020-03-23 07:50 | NUR ---
PHYSICAL THERAPY Screen and PT eval received will follow thank you. Abiola George PT
[2020-03-23 08:00] VITALS: BP 148/70
--- NOTE | 2020-03-23 08:31 | NUR ---
PT SITTING ON THE SIDE OF THE BED EATING BREAKFAST AT THIS TIME. RESPS ARE EASY AND NONLABORED. 3L NC IN USE. NO C/O PAIN VOICED AT THIS TIME. BED IS LOW, CALL LIGHT WITHIN REACH. WILL CONTINUE TO MONITOR.
--- NOTE | 2020-03-23 09:00 | NUR ---
Allergist/Immunologist Physician in to talk to patient. Patient states lives at home with his . There are 0 steps in the home. Physician: Dr. Erickson Samson Pharmacy: [facility] Home health services: none Patient's level of ADLs: INDEPENDENT Patient has working utilities: yes DME: O2 @ 3L nc, portable O2 tanks, nebulizer, O2 from unknown company in [place], glucometer Follow-up physician's appointment after d/c: he prefers to make his own follow up appt after discharge Does patient want to access PORTAL?: no Discharge plan discussed with patient. He lives at home with his . He is independent in his ADLs and ambulation. Discussed home health care services and he denies any home needs at this time. When medically stable he will be discharged to home. He states his son will provide transportation on discharge. SHANNAN PAUL
--- NOTE | 2020-03-23 12:26 | NUR ---
Nursing screen and OT orders received. Will follow up with patient to complete evaluation. Thank you. Krista Sanchez OTR/L
--- NOTE | 2020-03-23 13:30 | NUR ---
CALL RECIEVED FROM DR. FAYE TO GIVE NEW ORDERS. MEDICATIONS/TEST ORDERED.
[2020-03-23 14:31] LABS: INTERNATIONAL NORM RATIO 0.9 (2.0-3.5)
--- NOTE | 2020-03-23 14:38 | NUR ---
HEPARIN GTT INITIATED PER ORDER.
[2020-03-23 16:00] VITALS: BP 157/64
--- NOTE | 2020-03-23 21:39 | NUR ---
DR. PUCKETT NOTIFIED OF CRITICAL PTT OF 84.6. ORDERS TO ADJUST DOSE ACCORDING TO THE PHARMACY.
--- NOTE | 2020-03-23 22:21 | NUR ---
PATIENT MEDICATED WITH TRAZODONE FOR COMPLAINTS OF INSOMNIA. WILL MONITOR FOR EFFECTIVENESS. CALL LIGHT IN REACH.
[2020-03-24] VITALS: BP 165/76
--- NOTE | 2020-03-24 02:14 | NUR ---
TRAZODONE EFFECTIVE. PATIENT IN BED WITH EYES CLOSED. NO SIGNS OR SYMPTOMS OF DISTRESS NOTED.
[2020-03-24 04:23] LABS: ALBUMIN 2.9 gm/dl (3.1-4.5); CREATININE 1.41 mg/dL (0.70-1.30); POTASSIUM 4.4 mmol/L (3.5-5.1); TOTAL PROTEIN 6.3 gm/dL (6.4-8.2)
--- NOTE | 2020-03-24 07:04 | NUR ---
IV started left antecubital with #20 angiocath after 2nd attempts. this is for CTA test today The IV site was prepped with Chloraprep. Heparin lock attached. Sterile dressing applied. Patient tolerated precedure well. Procedure performed according to [facility] policy & procedure. JAN AMADOR
--- NOTE | 2020-03-24 07:15 | NUR ---
PT SITTING ON THE SIDE OF THE BED AT THIS TIME. RESPS ARE EASY AND NONLABORED. MOIST PRODUCTIVE COUGH FOR YELLOW SPUTUM NOTED. PT DENIES ANY SOB OR CHEST PAIN. HEPARIN GTT INFUSING PER ORDER. BED IS LOW, CALL LIGHT WITHIN REACH. WILL CONTINUE TO MONITOR.
--- NOTE | 2020-03-24 07:32 | NUR ---
PT OFF FLOOR AT THIS TIME FOR CTA CHEST.
--- NOTE | 2020-03-24 07:33 | NUR ---
24 HR CHART CHECK COMPLETE.
[2020-03-24 08:00] VITALS: BP 178/70
--- NOTE | 2020-03-24 09:00 | NUR ---
Exercise Instruct in to see patient. No new needs or request at this time. He denies any home needs. When medically stable he will be discharged to home.
--- NOTE | 2020-03-24 14:15 | NUR ---
Occupational therapy order received and OT evaluation completed in full on the fifth floor. Per OT evaluation, patient is at his baseline for ADLs and functional transfers. Patient is evaluation only for OT, defer to PT for endurance training. Recommend home with HH and continued family supervision as needed. Thank you for the referral. Mayra Matthews, OTR/L
[2020-03-24 16:00] VITALS: BP 156/64
--- NOTE | 2020-03-24 16:12 | NUR ---
Physical Therapy evaluation completed on 5th floor with full evaluation to follow. Recommend physical therapy per plan of care and home w HH services upon discharge. Thank you for this referral. Abiola George PT
[2020-03-24 20:00] VITALS: BP 132/47
--- NOTE | 2020-03-24 21:35 | NUR ---
PATIENT MEDICATED WITH TRAZODONE FOR COMPLAINTS OF INSOMNIA. WILL CONTINUE TO MONITOR. CALL LIGHT IN REACH.
[2020-03-25] VITALS: BP 145/57
[2020-03-25 08:00] VITALS: BP 116/42
--- NOTE | 2020-03-25 08:00 | NUR ---
IN TO ROOM. PATIENT AWAKE, ALERT AND ORIENTED. NO STATED COMPLAINTS AT THIS TIME. PT HARD OF HEARING BUT USES APPROPRIATE SPEECH. DETEREMINED THAT PT REPOSITIONS SELF AND WAS ENCOURAGED TO DO SO. RESPIRATIONS ARE EASY AND REGULAR ON 3L NC. NO SOB NOTED AT REST. BED IN LOWEST LOCKED POSITION AND CALL LIGHT WITHIN REACH. WILL CONTINUE TO MONITOR.
--- NOTE | 2020-03-25 08:30 | NUR ---
Cw Operator in to see patient. No new needs or request at this time. He states Dr. Altamirano told him he could be discharged tomorrow. When medically stable he will be discharged to home. He denies any home needs.
--- NOTE | 2020-03-25 09:55 | NUR ---
PHYSICAL THERAPY Patient seen this am 1;1 for therapy visit and was supine in bed upon therapist arrival. Patient identified by name / and presented with continuous O2-3L via NC. Patient reports no c/o's pain this morning and records SpO2 93%, HR 87 bpm at rest prior to transfering supine to sit EOB with SBA x 1. Patient performed sit to stand transfer SBA and ambulates without AD, ad masoud in hallway, SBA, 45'x 1. Patient demonstrates slow, steady gerry and was able to walk backwards 5'x 1, no LOB. Patient returned to EOB sit with both increased fatigue / SOB, recording SpO2 84%, HR 105 bpm. Patient needed v/c for purse lip breathing technique and following brief seated rest break returned to WFL's. Patient remained EOB with call light, tray table and telephone. Will continue per POC as tolerated, total treatment time 14 minutes. Segun Bethea, POLE SHAVER
--- NOTE | 2020-03-25 09:55 | NUR ---
Notified Dr. Wagner of Dr. Altamirano stating patient could be discharged to home tomorrow.
[2020-03-25 16:00] VITALS: BP 149/58
[2020-03-25 20:00] VITALS: BP 162/59
[2020-03-26] VITALS: BP 138/60
[2020-03-26 06:13] LABS: BUN 25 mg/dl (7-24); CHLORIDE 109 mmol/L (98-107); CREATININE 1.33 mg/dL (0.70-1.30); POTASSIUM 4.3 mmol/L (3.5-5.1); SODIUM 140 mmol/L (136-145)
--- NOTE | 2020-03-26 07:30 | NUR ---
TOOK OVER CARE OF PT. PT RESTING IN BED. NO S/S OF DISTRESS NOTED. RESPIRATIONS EASY AND UNLABORED ON 3L NC. PT PLEASANT AND COOPERATIVE. ALL SAFETY MEASURES IN PLACE FOR PT. CALL LIGHT IN REACH.
[2020-03-26 08:00] VITALS: BP 152/57
--- NOTE | 2020-03-26 10:34 | NUR ---
AM MEDICATIONS GIVEN AT THIS TIME. NO NEW COMPLAINTS ARE VOICED BY PT. UROSTOMY IS PATENT AND DRAINING STRAW COLORED URINE INTO BAG. RESPIRATIONS UNLABORED AT REST. CALL LIGHT IN REACH.
--- NOTE | 2020-03-26 12:58 | NUR ---
PHYSICAL THERAPY CO-SIGN I approve of the Physical Therapy notes written above. Abiola George PT
--- NOTE | 2020-03-26 13:25 | NUR ---
PHYSICAL THERAPY Patient seen this pm 1:1 for therapy visit and was resting supine in bed upon therapist arrival. Patient identified by name / and presented with continuos O2-2L via NC. Patient was very pleasant this afternoon, voicing no new c/o's and transfers supine to sit EOB SBA, then sit to stand SBA x 1. Patient ambulaes without AD, > 150'x 1, SBA, demonstrating slow, steady gerry and cautious step sequence during all 90/180 turns. Patient able to walk backwards 5'x 2, no LOB and returned to EOB sit with increased SOB / Fatigue. Patient recorded SpO2 82%, HR 111 bpm and received v/c for purse lip breathing technique. Patient returned to SpO2 92%, HR 86 bpm following seated rest break approx 1 minute. Patient remained EOB sit with call light, tray table and telephone. Will continue per POC as tolerated, total treatment time 16 minutes. Segun Bethea, SUPERVISOR [employer]
--- NOTE | 2020-03-26 14:27 | NUR ---
UROSTOMY BAG COMING OFF, UROSTOMY BAG CHANGED, HOOKED TO ANDERS BAG.
[2020-03-26 16:00] VITALS: BP 156/50
--- NOTE | 2020-03-26 18:40 | NUR ---
PT SITTING UP IN CHAIR. ALERT ORIENTED AND PLEASANT. NO COMPLAINTS ARE VOICED BY PT AT THIS TIME. CALL LIGHT IN REACH.
--- NOTE | 2020-03-26 19:45 | NUR ---
Patient resting quietly with no c/o discomfort. Respirations easy and regular. Vital signs stable. No overt distress. ZINA NICOLE
[2020-03-26 20:00] VITALS: BP 143/51
[2020-03-27] VITALS: BP 143/51; BP 148/50
--- NOTE | 2020-03-27 02:27 | NUR ---
24 HR chart check completed.
--- NOTE | 2020-03-27 04:09 | NUR ---
Patient resting quietly with no c/o discomfort. Respirations easy and regular. Vital signs stable. No overt distress. ZINA NICOLE
--- NOTE | 2020-03-27 07:30 | NUR ---
TOOK OVER CARE OF PT AT THIS TIME. PT RESTING IN BED. ALERT ORIENTED AND PLEASANT MOOD. ANSWERS ALL QUESTIONS APPROPRIATELY. UROSTOMY BAG IS PATENT/IN TACT: DRAINING STRAW COLOR URINE. PT DENIES SHORTNESS OF BREATH AND PAIN. RESPIRATIONS ARE EASY AND UNLABORED ON 2L NC. NO S/S OF DISTRESS NOTED. PT DENIES NEEDING ANYTHING AT THIS TIME. ALL SAFETY MEASURES ARE IN PLACE. CALL LIGHT IN REACH.
[2020-03-27 08:00] VITALS: BP 164/62
--- NOTE | 2020-03-27 09:33 | NUR ---
PT STATES THAT UROSTOMY BAG IS LOOSE AND IS LEAKING. UROSTOMY BAG CHANGED AT THIS TIME AND SECURED WITH UROSTOMY BELT. UROSTOMY BAG IS ATTACHED TO DRAINAGE BAG AND CURRENTLY DRAINING LIGHT YELLOW URINE. WILL CONTINUE TO MONITOR. PT HAS NO OTHER COMPLAINTS AND NO OTHER S/S OF DISTRESS. AM MEDS ARE GIVEN AT THIS TIME. WILL CONTINUE TO MONITOR. CALL LIGHT IN REACH.
--- NOTE | 2020-03-27 13:54 | NUR ---
PT SITTING UP IN BED, ALERT ORIENTED AND PLEASANT MOOD. PT DENIES ANY DISTRESS. RESPIRATIONS EASY. CALL LIGHT IN REACH.
[2020-03-27 16:00] VITALS: BP 156/51
--- NOTE | 2020-03-27 18:23 | NUR ---
PT EVENING ANTIBIOTIC RUNNING WITH EASE INTO LEFT FOREARM IV. BOTH IV SITES PATENT AND FLUSHING. NO S/S OF DISTRESS. NO COMPLAINTS VOICED BY PT. SAFETY MEASURES IN PLACE. CALL LIGHT IN REACH.
[2020-03-27 20:00] VITALS: BP 187/76
--- NOTE | 2020-03-27 20:13 | NUR ---
SITTING UP IN BED TALKING ON PHONE. 02 INTACT; CALL LIGHT WITHIN REACH. PT. VOICES NO C/O AT THIS TIME. NO DISTRESS NOTED.
[2020-03-28] VITALS: BP 141/53
[2020-03-28 06:22] LABS: BASO % 0.1 % (0.0-1.0); EOS % 0.1 % (1.0-4.0); HEMATOCRIT 38.5 % (42.0-52.0); LYMPH # 2.4 10*3/uL (1.3-4.4); MEAN CELL VOLUME 96.7 fl (80.0-94.0); MEAN CORPUSCULAR HGB 29.9 pg (27.0-31.0); MEAN CORPUSCULAR HGB CONC 30.9 g/dl (33.0-37.0); MEAN PLATELET VOLUME 9.5 fl (9.6-12.3); MONO # 0.7 10*3/uL (0.1-1.0); MONO % 7.7 % (3.0-9.0); NEUT # 5.7 10*3/uL (2.3-7.9); NEUT % 64.6 % (47.0-73.0); PLATELET COUNT AUTOMATED 216 10*3/uL (130-400); RED BLOOD COUNT 3.98 10*6/uL (4.50-5.90); RED CELL DISTRI WIDTH 12.6 % (0-14.5); WHITE BLOOD COUNT 8.8 10*3/uL (4.8-10.8)
--- NOTE | 2020-03-28 06:30 | NUR ---
AROUSES EASILY TO TAKE MEDICATIONS. VOICES NO C/O AT THIS TIME. 02 REMAINS INTACT. CALL LIGHT WITHIN REACH.
[2020-03-28 06:55] LABS: CREATININE 1.4 mg/dL (0.70-1.30); POTASSIUM 4.1 mmol/L (3.5-5.1)
--- NOTE | 2020-03-28 07:30 | NUR ---
PT RESTING IN BED. VOICES NO CONCERNS AT THIS TIME. RESPS EASY AND NON LABORED. NO S/S OF DISTRESS NOTED. VSS. WHITE BOARD UPDATED. POC DISCUSSED W PT. CALL LIGHT WITHIN REACH. WHEEZEZ/RHONCHI T/O NOTED, PROD HARSH MOIST COUGH. 3L NC INTACT. PT DENIES SOB AT REST.
[2020-03-28 08:00] VITALS: BP 126/61
--- NOTE | 2020-03-28 14:43 | NUR ---
PT STATING HIS NOSE IS STUFFY AND WOULD LIKE SOME NASAL SPRAY. WILL ATTEMPT TO REACH
--- NOTE | 2020-03-28 15:00 | NUR ---
SPOKE W DR COHEN WHO STATES PT CAN HAVE DEEP SEA NASAL MIST TID.
[2020-03-28 16:00] VITALS: BP 103/58; BP 152/51
--- NOTE | 2020-03-28 19:45 | NUR ---
IN TO ASSESS PATIENT. PATIENT ALERT AND ORIENTED PLEASANT BUT SLEETMUTE. PATIENT O2 DEPENDENT ON 3L NASAL CANNULA. STATES HE HAS A PRODUCTIVE COUGH AND THAT HE WILL PROBABLY GET TO GO HOME TOMORROW PER DR. COHEN. PATIENT HAS NO COMPLAINTS AT THIS TIME. CALL LIGHT WITHIN REACH, WILL MONITOR
[2020-03-28 20:00] VITALS: BP 160/80
[2020-03-29] VITALS: BP 131/40; BP 134/56
--- NOTE | 2020-03-29 01:13 | NUR ---
PATIENT SLEEPING, NO DISTRESS NOTED, CALL LIGHT WITHIN REACH, WILL MONITOR
--- NOTE | 2020-03-29 01:28 | NUR ---
24 HR chart check completed.
--- NOTE | 2020-03-29 07:13 | NUR ---
Shift chart check completed.
--- NOTE | 2020-03-29 07:30 | NUR ---
PT RESTING IN BED WATCHING TV. RESPS EASY AND NON LABORED. NO S/S OF DISTRESS NOTED. VSS. WHITE BOARD UPDATED. POC DISCUSSED W PT. OXYGEN INTACT. PT EAGER TO GET HOME TODAY. WHEEZEZ/RHONCHI NOTED. UROSTOMY PATENT-DRAINING CLEAR YELLOW. CALL LIGHT WITHIN REACH
[2020-03-29 08:00] VITALS: BP 148/48
--- NOTE | 2020-03-29 09:52 | NUR ---
DR FAYE INTO SEE PT
--- NOTE | 2020-03-29 10:15 | NUR ---
PHYSICAL THERAPY Patient seen this am 1;1 for therapy visit and was resting supine in bed upon therapist arrival. Patient identified by name / and presents with continuous O2-3L via NC. Patient reports no new c/o's and transfers supine to sit EOB with CGA x 1. Patient performed seated B LE therex, all planes, AROM, 2 x 10 reps each to increase LE strength. Patient tolerated all ex without c/o, however declined therapist request to take a walk, stating he is leaving to go home today and wanted to lay back down to rest. Patient remained EOB sit and will continue per POC as tolerated. Total treatment time 14 minutes. Segun Bethea, FURNITURE ASSOCIATE
--- NOTE | 2020-03-29 11:00 | NUR ---
Supervisor [employer] in to see patient. No new needs or request at this time. He denies any home needs. When medically stable he will be discharged to home.
--- NOTE | 2020-03-29 11:45 | NUR ---
PT SITTING UP IN CHAIR. NO STATED COMPLAINTS, NO SOB NOTED. DENIES PAIN AT THIS TIME. PT VOICES DESIRE TO GO HOME TODAY. PLAN OF CARE REVIEWED. RESPIRATIONS ARE EASY AND REGULAR. O2 INTACT. PT REPOSTIONS SELF AND IS ENCOURAGED TO DO SO. UROSTOMY PATENT. DRAINING STRAW YELLOW URINE. CHAIR IN LOCKED POSITION AND CALL LIGHT WITHIN REACH.
[2020-03-29 16:00] VITALS: BP 178/80
[2020-03-29] MEDS ORDERED: OMNICEF300 MG PO (16:00)
--- NOTE | 2020-03-29 17:00 | NUR ---
Discharge instructions reviewed with patient/family. Patient receptive and verbalizes understanding. Follow-up care arranged. Written instructions given to patient/family. LAUREN VASQUEZ
--- NOTE | 2020-03-30 07:37 | NUR ---
PHYSICAL THERAPY CO-SIGN I approve of the Physical Therapy notes written above. Abiola George PT
== END 2020-03-29 17:35 | disposition home or self-care (01) | DRG 177 ==
LOC: ED 14:13 → EDHOLD 16:46 → 5E 16:46
PROVIDERS: Internal Medicine; Internal Medicine Critical Care Medicine; Nurse Practitioner Family; ADMIT Internal Medicine
DX: J15.6 Pneumonia due to other Gram-negative bacteria (principal); J96.20 Acute and chronic respiratory failure, unspecified whether with hypoxia or hypercapnia; J44.1 Chronic obstructive pulmonary disease with (acute) exacerbation; F33.1 Major depressive disorder, recurrent, moderate; J45.41 Moderate persistent asthma with (acute) exacerbation; J44.0 Chronic obstructive pulmonary disease with (acute) lower respiratory infection; E44.0 Moderate protein-calorie malnutrition; N17.9 Acute kidney failure, unspecified; K21.0 Gastro-esophageal reflux disease with esophagitis; I25.10 Atherosclerotic heart disease of native coronary artery without angina pectoris; N18.3 Chronic kidney disease, stage 3 (moderate); I12.9 Hypertensive chronic kidney disease with stage 1 through stage 4 chronic kidney disease, or unspecified chronic kidney disease; D63.1 Anemia in chronic kidney disease; E11.22 Type 2 diabetes mellitus with diabetic chronic kidney disease; Z85.46 Personal history of malignant neoplasm of prostate; Z86.711 Personal history of pulmonary embolism; Z88.6 Allergy status to analgesic agent; Z99.81 Dependence on supplemental oxygen; Z88.1 Allergy status to other antibiotic agents; Z85.51 Personal history of malignant neoplasm of bladder; Z90.49 Acquired absence of other specified parts of digestive tract; Z89.029 Acquired absence of unspecified finger(s); Z87.891 Personal history of nicotine dependence; Z68.32 Body mass index [BMI] 32.0-32.9, adult

== ENCOUNTER → 2020-04-26 | Outpatient (CLI) | payer MEDICARE | END | disposition home or self-care (01) | LOC: RAD 13:50 | DX: J44.9 Chronic obstructive pulmonary disease, unspecified (principal) ==

== ENCOUNTER 2020-07-02 13:23 | Inpatient (IN) | payer MEDICARE ==
[~2020-07-02] VITALS: Ht 170.2 cm; Wt 85.4 kg
[2020-07-02 13:32] VITALS: BP 173/67
[2020-07-02 14:18] LABS: BASO % 0.1 % (0.0-1.0); HEMATOCRIT 42.9 % (42.0-52.0); LYMPH # 1.1 10*3/uL (1.3-4.4); LYMPH % 16.4 % (27.0-41.0); MEAN CELL VOLUME 94.1 fl (80.0-94.0); MEAN CORPUSCULAR HGB 29.4 pg (27.0-31.0); MEAN CORPUSCULAR HGB CONC 31.2 g/dl (33.0-37.0); MEAN PLATELET VOLUME 9.3 fl (9.6-12.3); MONO # 0.6 10*3/uL (0.1-1.0); MONO % 8.2 % (3.0-9.0); NEUT # 5.1 10*3/uL (2.3-7.9); PLATELET COUNT AUTOMATED 236 10*3/uL (130-400); RED BLOOD COUNT 4.56 10*6/uL (4.50-5.90); RED CELL DISTRI WIDTH 12.2 % (0-14.5); WHITE BLOOD COUNT 6.8 10*3/uL (4.8-10.8)
[2020-07-02 14:28] LABS: ACT PARTIAL THROMBO TIME 29.2 SECONDS (20.0-32.1)
[2020-07-02 14:34] LABS: ALBUMIN 3.5 gm/dl (3.1-4.5); ALKALINE PHOSPHATASE 93 U/L (45-117); BUN 19 mg/dl (7-24); CHLORIDE 108 mmol/L (98-107); CREATININE 1.43 mg/dL (0.70-1.30); POTASSIUM 4.3 mmol/L (3.5-5.1); SGOT/AST 17 IU/L (3-35); SGPT/ALT 21 U/L (12-78); SODIUM 136 mmol/L (136-145); TOTAL PROTEIN 7.3 gm/dL (6.4-8.2)
[2020-07-02 14:44] LABS: TROPONIN I < 0.015 ng/ml (<0.045)
[2020-07-02 15:45] VITALS: BP 144/57
--- NOTE | 2020-07-02 15:51 | NUR ---
PT RESTING IN BED. HE JUST FINISHED BREATHING TREATMENT. NO COMPLAINTS AT THIS TIME. SIDERAILS UP X2, CALL LIGHT WITHIN REACH
[2020-07-02 17:00] VITALS: BP 130/108
--- NOTE | 2020-07-02 17:00 | NUR ---
Time: 1699 A 74 year old MALE admitted to under services of MARY KAY PASCAL MD. Pt. arrived via bed from ER. Chief complaint: SHORTNESS OF BREATH. ANDRAE MARCIAL
[2020-07-02 20:00] VITALS: BP 151/54
--- NOTE | 2020-07-02 20:10 | NUR ---
PT RESTING IN BED. RESP-EASY AND REGULAR. TOLERATED ROUTINE MED WITH NO PROBLEM. NO C/O AT THIS TIME. CALL LIGHT IN REACH.
[2020-07-03] VITALS: BP 112/60
--- NOTE | 2020-07-03 | NUR ---
PT SLEEPING IN BED. RESP-EASY AND REGULAR. AWAKENS EASILY. CALL LIGHT IN REACH. SEE SHIFT ASSESSMENT.
--- NOTE | 2020-07-03 05:28 | NUR ---
TOLERATED ROUTINE MED WITH NO PROBLEM. NO C/O AT THIS TIME. CALL LIGHT IN REACH.
[2020-07-03 08:00] VITALS: BP 181/50
--- NOTE | 2020-07-03 08:41 | NUR ---
Photogrammetric Compilation Specialist in to talk to patient. Patient states lives at home with . There are 0 steps in the home. Physician: Dr. Erickson Samson Pharmacy: [facility] Home health services: none Patient's level of ADLs: INDEPENDENT Patient has working utilities: yes DME: 02@3 liters nc, portable oxygen tanks, nebulizer, unknown company from [place], glucometer Follow-up physician's appointment after d/c: Hospitalists nurse director Does patient want to access PORTAL?: no Discharge plan Discharge plan discussed with patient, He lives at home with his . He is independent with his ADLs. Discussed home health services or SNF, patient declines any services needed at this time. When stable patient will discharge to home with . His will transport. . NICOLE ERVIN
[2020-07-03 12:00] VITALS: BP 155/63
--- NOTE | 2020-07-03 14:06 | NUR ---
PATIENT MEDICATED WITH PO DULCOLAX AT THIS TIME FOR COMPLAINTS OF CONSTIPATION. WILL MONITOR FOR EFFECTIVENESS.
[2020-07-03 16:00] VITALS: BP 127/51
[2020-07-03 20:20] VITALS: BP 141/47
[2020-07-03 20:21] VITALS: BP 141/47
--- NOTE | 2020-07-03 23:00 | NUR ---
IV OUT. NEW 22G INSERTED INTO LEFT FOREARM ON FIRST ATTEMPT WITHOUT DIFFICULTY. GOOD BLOOD RETURN. PATIENT TOLERATED WELL. WILL CONTINUE TO MONITOR. CALL LIGHT IN REACH.
[2020-07-04] VITALS: BP 130/52
--- NOTE | 2020-07-04 06:20 | NUR ---
ATTEMPTED TO NOTIFY YUNIER SMITH OF CONSULT FOR ABNORMAL CT OF CHEST WITHOUT SUCCESS. DON'T KNOW IF GOT DISCONNECTED BUT WHEN I TRIED TO CALL AGAIN IT WENT TO VOICEMAIL. WILL PASS ON TO DAYLIGHT TO NOTIFY HIM.
[2020-07-04 08:00] VITALS: BP 152/59
--- NOTE | 2020-07-04 08:06 | NUR ---
RESTING WITHOUT COMPLAINTS. NO VOICED CONCERNS OR NEEDS AT THIS TIME. CALL LIGHT IN REACH.
--- NOTE | 2020-07-04 09:49 | NUR ---
AWARE OF CONSULT. NO NEW ORDERS REC'D.
[2020-07-04 12:00] VITALS: BP 146/52
[2020-07-04 16:00] VITALS: BP 154/78
--- NOTE | 2020-07-04 18:02 | NUR ---
CONTINUES TO REST WITH EASE. NO VOICED COMPLAINTS. CALL LIGHT IN REACH.
[2020-07-04 20:32] VITALS: BP 154/71
[2020-07-05 00:19] VITALS: BP 148/50
[2020-07-05 05:08] LABS: BUN 17 mg/dl (7-24); CHLORIDE 110 mmol/L (98-107); CREATININE 1.27 mg/dL (0.70-1.30); POTASSIUM 4.7 mmol/L (3.5-5.1); SODIUM 142 mmol/L (136-145)
[2020-07-05 06:02] LABS: BASO % 0.3 % (0.0-1.0); HEMATOCRIT 41.4 % (42.0-52.0); LYMPH # 1.1 10*3/uL (1.3-4.4); LYMPH % 13.5 % (27.0-41.0); MEAN CELL VOLUME 96.7 fl (80.0-94.0); MEAN CORPUSCULAR HGB 29.7 pg (27.0-31.0); MEAN CORPUSCULAR HGB CONC 30.7 g/dl (33.0-37.0); MEAN PLATELET VOLUME 9.4 fl (9.6-12.3); MONO # 0.3 10*3/uL (0.1-1.0); MONO % 3.8 % (3.0-9.0); NEUT # 6.6 10*3/uL (2.3-7.9); NEUT % 82.1 % (47.0-73.0); PLATELET COUNT AUTOMATED 229 10*3/uL (130-400); RED BLOOD COUNT 4.28 10*6/uL (4.50-5.90); RED CELL DISTRI WIDTH 12.1 % (0-14.5)
--- NOTE | 2020-07-05 07:00 | NUR ---
IN TO SEE PATIENT.
--- NOTE | 2020-07-05 07:30 | NUR ---
PATIENT RESTING IN BED. ASSESSMENT COMPLETE. RESPS EASY AND REGULAR. 3L NC IN PLACE. WHEEZES PRESENT. VOICES NO COMPLAINTS. CALL LIGHT IN REACH.
[2020-07-05 08:00] VITALS: BP 153/53
--- NOTE | 2020-07-05 10:30 | NUR ---
CM in to see patient. No new needs or request at this time. Discussed home health care services and he declines. CM will continue to follow for any discharge planning needs. When medically stable he will be discharged to home. He states his son will provide transportation on discharge.
--- NOTE | 2020-07-05 11:44 | NUR ---
24 HR chart check completed.
--- NOTE | 2020-07-05 12:39 | NUR ---
NOTIFIED PATIENTS FAMILY CONCERNED PATIENT CALLED THEM AND TOLD THEM SHE SAID HE HAS CANCER AND THEY WOULD LIKE TO TALK TO HER. GAVE NUMBER FOR DAUGHTER-NICOLE AND STATES SHE WOULD CALL AND TALK TO HER AND LET HER KNOW WHAT IS GOING ON.
--- NOTE | 2020-07-05 14:05 | NUR ---
REPORT GIVEN TO AKIN RIVERA AT THIS TIME.
--- NOTE | 2020-07-05 14:30 | NUR ---
ASSUMED CARE FOR PT AT THIS TIME. IN TO SEE PT. PT SITTING IN CHAIR, VOICES NO COMPLAINTS, CALL LIGHT IN REACH
[2020-07-05 16:00] VITALS: BP 136/52
--- NOTE | 2020-07-05 16:44 | NUR ---
IV started left antecubital with #22 protective cath after 1 attempts. Site prepped with Chloroprep. Sterile dressing applied. Patient tolerated procedure well. OTILIA FIORE
--- NOTE | 2020-07-05 18:00 | NUR ---
IN TO SEE PT. PT VOICES NO COMPLAINTS. WATCHING TV AT THIS TIME
[2020-07-05 20:00] VITALS: BP 131/48
[2020-07-06] VITALS: BP 133/50
--- NOTE | 2020-07-06 03:54 | NUR ---
Patient resting quietly with no c/o discomfort. Respirations easy and regular. Vital signs stable. No overt distress. OLU SIMPSON
--- NOTE | 2020-07-06 07:30 | NUR ---
TOOK OVER CARE OF PT AT THIS TIME. PT RESTING IN BED. RESPIRATIONS UNLABORED ON 3L NC. NO S/S OF DISTRESS NOTED. SAFETY MEASURES IN PLACE, CALL LIGHT IN REACH.
[2020-07-06 08:00] VITALS: BP 148/50
[2020-07-06] MEDS ORDERED: DOXYCYCLINE100 M3 PO (08:51)
[2020-07-06] MEDS ORDERED: PREDNISONE5 MG PO (08:51)
--- NOTE | 2020-07-06 09:30 | NUR ---
PT NOTIFIED OF DISCHARGE AND STATES THAT HE WILL HAVE TO WAIT UNTIL 1:30 PM WHEN IS SON IS ABLE TO PICK HIM UP.
--- NOTE | 2020-07-06 12:00 | NUR ---
PT STATES THAT SON WILL BE HERE AROUND 1:30 PM TO PICK HIM UP.
--- NOTE | 2020-07-06 13:08 | NUR ---
Discharge instructions reviewed with patient/family. Patient receptive and verbalizes understanding. Follow-up care arranged. Written instructions given to patient/family. CHARLENE DRUMMOND
--- NOTE | 2020-07-06 13:25 | NUR ---
PT LEAVES FLOOR AT THIS TIME VIA W/C TO BE TAKEN TO SON'S CAR.
== END 2020-07-06 13:25 | disposition home or self-care (01) | DRG 202 ==
LOC: ED 13:23 → 4E 15:23 → EDHOLD 15:23 → 4E 15:59
PROVIDERS: Emergency Medicine; ADMIT Internal Medicine; ATTEND Internal Medicine
DX: J20.9 Acute bronchitis, unspecified (principal); J44.0 Chronic obstructive pulmonary disease with (acute) lower respiratory infection; J44.1 Chronic obstructive pulmonary disease with (acute) exacerbation; F32.1 Major depressive disorder, single episode, moderate; J96.11 Chronic respiratory failure with hypoxia; N17.9 Acute kidney failure, unspecified; I12.9 Hypertensive chronic kidney disease with stage 1 through stage 4 chronic kidney disease, or unspecified chronic kidney disease; K21.9 Gastro-esophageal reflux disease without esophagitis; E78.00 Pure hypercholesterolemia, unspecified; N18.3 Chronic kidney disease, stage 3 (moderate); E11.22 Type 2 diabetes mellitus with diabetic chronic kidney disease; E66.9 Obesity, unspecified; J45.50 Severe persistent asthma, uncomplicated; I25.10 Atherosclerotic heart disease of native coronary artery without angina pectoris; F03.90 Unspecified dementia, unspecified severity, without behavioral disturbance, psychotic disturbance, mood disturbance, and anxiety; Z66 Do not resuscitate; Z51.5 Encounter for palliative care; R91.1 Solitary pulmonary nodule; Z85.46 Personal history of malignant neoplasm of prostate; Z86.711 Personal history of pulmonary embolism; Z87.01 Personal history of pneumonia (recurrent); Z88.1 Allergy status to other antibiotic agents; Z88.8 Allergy status to other drugs, medicaments and biological substances; Z85.89 Personal history of malignant neoplasm of other organs and systems; Z85.51 Personal history of malignant neoplasm of bladder; Z89.022 Acquired absence of left finger(s); Z87.891 Personal history of nicotine dependence; Z83.3 Family history of diabetes mellitus; Z82.5 Family history of asthma and other chronic lower respiratory diseases; Z82.49 Family history of ischemic heart disease and other diseases of the circulatory system; Z80.8 Family history of malignant neoplasm of other organs or systems; Z90.49 Acquired absence of other specified parts of digestive tract; Z79.52 Long term (current) use of systemic steroids; Z68.29 Body mass index [BMI] 29.0-29.9, adult

== ENCOUNTER 2020-09-05 10:34 | Inpatient (IN) | payer MEDICARE ==
[~2020-09-05] VITALS: Ht 167.6 cm; Wt 86.3 kg
[~2020-09-05 10:34] MED LIST changes: +PREDNISONE5 MG PO
[2020-09-05 10:45] VITALS: BP 223/126
[2020-09-05 11:09] LABS: BASO % 0.2 % (0.0-1.0); HEMATOCRIT 46.9 % (42.0-52.0); LYMPH % 15.2 % (27.0-41.0); MEAN CELL VOLUME 96.5 fl (80.0-94.0); MEAN CORPUSCULAR HGB 29.2 pg (27.0-31.0); MEAN CORPUSCULAR HGB CONC 30.3 g/dl (33.0-37.0); MEAN PLATELET VOLUME 9.4 fl (9.6-12.3); MONO # 1.1 10*3/uL (0.1-1.0); MONO % 8.4 % (3.0-9.0); NEUT % 75.7 % (47.0-73.0); PLATELET COUNT AUTOMATED 317 10*3/uL (130-400); RED BLOOD COUNT 4.86 10*6/uL (4.50-5.90); RED CELL DISTRI WIDTH 13.1 % (0-14.5); WHITE BLOOD COUNT 13.3 10*3/uL (4.8-10.8)
[2020-09-05 11:11] LABS: ABG BASE EXCESS 3.2 mmol/L (-2.0-2.0); ARTERIAL BLOOD GAS PH 7.33 (7.35-7.45)
[2020-09-05 11:20] LABS: ACT PARTIAL THROMBO TIME 24.5 SECONDS (20.0-32.1)
[2020-09-05 11:26] LABS: ALBUMIN 3.5 gm/dl (3.1-4.5); ALKALINE PHOSPHATASE 100 U/L (45-117); BUN 20 mg/dl (7-24); CHLORIDE 104 mmol/L (98-107); CREATININE 1.32 mg/dL (0.70-1.30); POTASSIUM 4.5 mmol/L (3.5-5.1); SGOT/AST 53 IU/L (3-35); SGPT/ALT 39 U/L (12-78); SODIUM 140 mmol/L (136-145); TOTAL PROTEIN 7.7 gm/dL (6.4-8.2)
[2020-09-05 11:27] VITALS: BP 155/95
[2020-09-05 11:28] LABS: TROPONIN I < 0.015 ng/ml (<0.045)
[2020-09-05 12:30] VITALS: BP 166/89
[2020-09-05 14:50] VITALS: BP 169/107
[2020-09-05 18:00] VITALS: BP 150/54
[2020-09-06] VITALS: BP 148/74
[2020-09-06 05:09] LABS: BILIRUBIN Negative (Negative); BLOOD Trace-Lysed (Negative); CLARITY Clear (Clear); COLOR Yellow (Yellow); GLUCOSE Negative (Negative); KETONE 1+ (Negative); LEUKO ESTERASE 2+ (Negative); NITRITE Positive (Negative); SPECIFIC GRAVITY 1.015 (1.001-1.030); UROBILINOGEN 0.2 E.U./dl (0.0-1.0)
[2020-09-06 05:20] LABS: WBC 31-40 wbc/hpf (0-5)
[2020-09-06 05:21] LABS: BACTERIA 1+
[2020-09-06 06:47] LABS: BASO % 0.1 % (0.0-1.0); HEMATOCRIT 38.9 % (42.0-52.0); LYMPH # 0.6 10*3/uL (1.3-4.4); LYMPH % 6.8 % (27.0-41.0); MEAN CELL VOLUME 96.3 fl (80.0-94.0); MEAN CORPUSCULAR HGB CONC 31.1 g/dl (33.0-37.0); MEAN PLATELET VOLUME 9.6 fl (9.6-12.3); MONO # 0.5 10*3/uL (0.1-1.0); MONO % 5.3 % (3.0-9.0); NEUT # 7.7 10*3/uL (2.3-7.9); NEUT % 87.3 % (47.0-73.0); RED BLOOD COUNT 4.04 10*6/uL (4.50-5.90); WHITE BLOOD COUNT 8.8 10*3/uL (4.8-10.8)
[2020-09-06 06:51] LABS: PLATELET COUNT AUTOMATED 218 10*3/uL (130-400)
[2020-09-06 06:53] LABS: BUN 25 mg/dl (7-24); CHLORIDE 107 mmol/L (98-107); POTASSIUM 5.2 mmol/L (3.5-5.1); SODIUM 142 mmol/L (136-145)
[2020-09-06 08:00] VITALS: BP 150/61
[2020-09-06 16:00] VITALS: BP 166/67
[2020-09-06 19:27] VITALS: BP 166/67
[2020-09-06 20:00] VITALS: BP 162/82
[2020-09-06 21:43] LABS: ABG BASE EXCESS 3.2 mmol/L (-2.0-2.0); ARTERIAL BLOOD GAS PH 7.401 (7.35-7.45)
[2020-09-07] VITALS: BP 155/61
[2020-09-07 00:08] VITALS: BP 148/74
[2020-09-07 08:00] VITALS: BP 189/72
[2020-09-07 12:00] VITALS: BP 170/72
[2020-09-07 16:00] VITALS: BP 175/72
[2020-09-07 20:06] VITALS: BP 149/55
[2020-09-08] VITALS: BP 156/90
[2020-09-08 08:00] VITALS: BP 132/76
[2020-09-08 12:00] VITALS: BP 128/68
[2020-09-08 16:00] VITALS: BP 169/67
[2020-09-08 20:00] VITALS: BP 157/63
[2020-09-09] VITALS: BP 146/60
[2020-09-09 07:33] LABS: BUN 36 mg/dl (7-24); CHLORIDE 106 mmol/L (98-107); CREATININE 1.25 mg/dL (0.70-1.30); POTASSIUM 4.5 mmol/L (3.5-5.1); SODIUM 140 mmol/L (136-145)
[2020-09-09 08:00] VITALS: BP 157/72
[2020-09-09 16:00] VITALS: BP 168/63
[2020-09-09 20:00] VITALS: BP 155/67
[2020-09-10] VITALS: BP 144/65
[2020-09-10 08:00] VITALS: BP 170/72
[2020-09-10 12:00] VITALS: BP 161/63
[2020-09-10 16:00] VITALS: BP 153/78
[2020-09-10 20:00] VITALS: BP 171/59
[2020-09-11] VITALS: BP 160/76
[2020-09-11 08:00] VITALS: BP 150/77
[2020-09-11 12:00] VITALS: BP 143/66
[2020-09-11 16:00] VITALS: BP 140/66
[2020-09-11 20:00] VITALS: BP 175/73
[2020-09-12] VITALS: BP 154/61
[2020-09-12 07:33] LABS: HEMATOCRIT 41.8 % (42.0-52.0); MEAN CORPUSCULAR HGB 29.1 pg (27.0-31.0); MEAN CORPUSCULAR HGB CONC 30.6 g/dl (33.0-37.0); MEAN PLATELET VOLUME 9.6 fl (9.6-12.3); PLATELET COUNT AUTOMATED 291 10*3/uL (130-400); RED CELL DISTRI WIDTH 12.8 % (0-14.5); WHITE BLOOD COUNT 15.8 10*3/uL (4.8-10.8)
[2020-09-12 07:51] LABS: ALBUMIN 2.8 gm/dl (3.1-4.5); ALKALINE PHOSPHATASE 80 U/L (45-117); BUN 38 mg/dl (7-24); CHLORIDE 108 mmol/L (98-107); CREATININE 1.25 mg/dL (0.70-1.30); POTASSIUM 4.5 mmol/L (3.5-5.1); SGOT/AST 44 IU/L (3-35); SGPT/ALT 37 U/L (12-78); SODIUM 142 mmol/L (136-145); TOTAL PROTEIN 5.9 gm/dL (6.4-8.2)
[2020-09-12 07:57] LABS: TOTAL CELLS COUNTED 100 #CELLS
[2020-09-12 07:58] LABS: OVALOCYTES FEW; PLATELET SUFFICIENCY NORMAL (NORMAL); SCHISTOCYTES FEW
[2020-09-12 08:00] VITALS: BP 154/56; BP 188/82
[2020-09-12 12:00] VITALS: BP 155/70
[2020-09-12 16:00] VITALS: BP 157/65
[2020-09-12 20:00] VITALS: BP 159/62
[2020-09-13] VITALS: BP 135/69
[2020-09-13 08:00] VITALS: BP 151/90
[2020-09-13 12:00] VITALS: BP 134/55
[2020-09-13 16:00] VITALS: BP 158/62
[2020-09-13 20:00] VITALS: BP 151/55
[2020-09-14] VITALS: BP 150/63
[2020-09-14 08:00] VITALS: BP 150/78
[2020-09-14] MEDS ORDERED: ATIVAN ORAL C2 MG/ML PO ×2 (09:57→10:01)
[2020-09-14] MEDS ORDERED: AUGMENTIN 875-875 MG PO (10:01)
[2020-09-14] MEDS ORDERED: ATROPINE SULFATE2 M2 OPH (10:01)
[2020-09-14] MEDS ORDERED: TYLENOL EXTRA500 M2 PO (10:01)
[2020-09-14] MEDS ORDERED: MORPHINE S100 MG/5 M PO (10:01)
== END 2020-09-14 13:10 | disposition hospice, home (50) | DRG 871 ==
LOC: ED 10:34 → 4E 12:11 → EDHOLD 12:11 → 4E 13:09
PROVIDERS: Emergency Medicine; Internal Medicine; Internal Medicine Critical Care Medicine; ADMIT Internal Medicine; ATTEND Internal Medicine
DX: A41.9 Sepsis, unspecified organism (principal); J18.9 Pneumonia, unspecified organism; J96.22 Acute and chronic respiratory failure with hypercapnia; J96.21 Acute and chronic respiratory failure with hypoxia; J44.1 Chronic obstructive pulmonary disease with (acute) exacerbation; J45.41 Moderate persistent asthma with (acute) exacerbation; J44.0 Chronic obstructive pulmonary disease with (acute) lower respiratory infection; F33.9 Major depressive disorder, recurrent, unspecified; Z68.45 Body mass index [BMI] 70 or greater, adult; R07.81 Pleurodynia; K21.00 Gastro-esophageal reflux disease with esophagitis, without bleeding; F51.01 Primary insomnia; E87.5 Hyperkalemia; Z20.828 Contact with and (suspected) exposure to other viral communicable diseases; I25.10 Atherosclerotic heart disease of native coronary artery without angina pectoris; I16.0 Hypertensive urgency; F03.90 Unspecified dementia, unspecified severity, without behavioral disturbance, psychotic disturbance, mood disturbance, and anxiety; R62.7 Adult failure to thrive; J20.9 Acute bronchitis, unspecified; N18.30 Chronic kidney disease, stage 3 unspecified; E78.00 Pure hypercholesterolemia, unspecified; Z89.022 Acquired absence of left finger(s); Z93.2 Ileostomy status; I12.9 Hypertensive chronic kidney disease with stage 1 through stage 4 chronic kidney disease, or unspecified chronic kidney disease; Z99.81 Dependence on supplemental oxygen; Z88.1 Allergy status to other antibiotic agents; Z88.8 Allergy status to other drugs, medicaments and biological substances; Z85.51 Personal history of malignant neoplasm of bladder; Z86.711 Personal history of pulmonary embolism; Z85.46 Personal history of malignant neoplasm of prostate; Z90.49 Acquired absence of other specified parts of digestive tract